=== PATIENT | male | born 1940 | race Caucasian/White ===

== ENCOUNTER 2017-05-04 22:38 | Emergency (ER) | payer MEDICARE, OTHER ==
[~2017-05-04 22:38] MED LIST: ASPI-516 CHEW; ATOR80TA45 PO; DILT60TA PO; ENAL10TA PO; FINA5TAB2 PO; TAMS0.4C4 PO; VESI5TAB2 PO; WARF-60 PO
[2017-05-04 22:43] VITALS: BP 121/64; PULSE 62; RESP 22; TEMP 97.5; O2SAT 98
[2017-05-04] MEDS ORDERED: TOBR.3%O RIGHT EYE (23:20)
--- NOTE | 2017-05-04 23:20 | PD ---
HPI Chief Complaint: Eye Problems/Injury Time Seen by Provider: 23:15 Travel History International Travel<30 days: No Contact w/Intl Traveler<30days: No Traveled to known affect area: No History of Present Illness HPI The patient is a 76-year-old male that got a foreign body, he believes eyelash, and his right eye after he rubbed his eye. He did not see the eyelash in his eye but feels like something is in his eye. He used some Clear Eyes to help wash it out. PFSH Past Medical History Hx Anticoagulant Therapy: Yes Blood Disorders: No Cancer: No Cardiovascular Problems: Yes High Cholesterol: Yes Chest Pain: Yes Cerebrovascular Accident: Yes Coronary Artery Disease: Yes Diminished Hearing: No Endocrine: No Gastrointestinal Disorders: No GERD: Yes Genitourinary: Yes Hypertension: Yes Immune Disorder: No Implanted Vascular Access Dvce: No Musculoskeletal: Yes Neurologic: Yes Psychiatric: No Reproductive: No Respiratory: No Immunizations Current: Yes Myocardial Infarction: Yes Tetanus Vaccination: < 5 Years Influenza Vaccination: Yes Past Surgical History AICD: No Cardiac Surgery: Yes Genitourinary Surgery: Yes (PROSTATE) Insulin Pump: No Joint Replacement: No Pacemaker: No Valve Replacement: Yes (2 METAL VALVES 1996) Other Surgery: Yes Social History Alcohol Use: Yes (OCC BEER) Tobacco Use: No Substance Use: No Allergies-Medications (Allergen,Severity, Reaction): Coded Allergies: No Known Allergies (Verified Adverse Reaction, Unknown, 05/04/17) Reported Meds & Prescriptions Reported Meds & Active Scripts Active Reported Warfarin 6 Mg Tab 6 Mg PO DAILY Tamsulosin (Tamsulosin HCl) 0.4 Mg Cap 0.4 Mg PO HS Vesicare (Solifenacin) 5 Mg Tab 5 Mg PO DAILY Finasteride 5 Mg Tab 5 Mg PO DAILY Do not crush. Enalapril (Enalapril Maleate) 10 Mg Tab 10 Mg PO DAILY Diltiazem (Diltiazem HCl) 60 Mg Tab 60 Mg PO QID Atorvastatin (Atorvastatin Calcium) 80 Mg Tab 80 Mg PO HS Aspirin 81 Mg Chew 81 Mg CHEW DAILY Review of Systems Except as stated in HPI: all other systems reviewed are Neg Physical Exam Narrative GENERAL: Well-nourished, well-developed patient in minimal apparent distress with his right eye discomfort. His vital signs are normal except for respirations of 22, when I see the patient is respirations are 18. SKIN: Focused skin assessment warm/dry. HEAD: Normocephalic. EYES: No scleral icterus. No injection or drainage. NECK: Supple, trachea midline. No JVD or lymphadenopathy. There is no conjunctival injection present. Lids were everted and no foreign body seen. Forcing staining reveals some minimal uptake at 5:00 on the right eye, this is extremely shallow. CARDIOVASCULAR: Regular rate and rhythm without murmurs, gallops, or rubs. RESPIRATORY: Breath sounds equal bilaterally. No accessory muscle use. GASTROINTESTINAL: Abdomen soft, non-tender, nondistended. MUSCULOSKELETAL: No cyanosis, or edema. BACK: Nontender without obvious deformity. No CVA tenderness. Data Data Last Documented VS Vital Signs Date Time Temp Pulse Resp B/P (MAP) Pulse Ox O2 Delivery O2 Flow Rate FiO2 05/04/17 22:43 97.5 62 22 121/64 (83) 98 MDM Medical Decision Making Medical Screen Exam Complete: Yes Emergency Medical Condition: Yes Medical Record Reviewed: Yes Differential Diagnosis Foreign body right eye, chemical conjunctivitis, allergic conjunctivitis, corneal abrasion Narrative Course The patient appears to have a corneal abrasion. No evidence of foreign body was seen. The abrasion is seen at 5:00 on the right eye. Plan: The patient will be given Tobrex ointment and follow-up with an mortgage coordinator if not better in 24 hours. Med/Other Pt SpecificInfo: Prescription(s) given Scripts Tobramycin Opth Oint (Tobrex Opth Oint) 0.3 % Oint 1 APPLIC RIGHT EYE QID for Infection, #1 TUBE 0 Refills Prov: Mariano Bosch MD 05/04/17 Disposition: 01 DISCHARGE HOME Condition: Stable Mariano Bosch MD May 04, 2017 23:20
[2017-05-04] MEDS ORDERED: TOBRAMYCIN SULFATE 0.3% OPTH OINT 3.5 GM TUBE RIGHT EYE ONE (23:30)
[2017-05-04 23:42] VITALS: BP 124/66; PULSE 64; RESP 18; O2SAT 98
== END 2017-05-04 23:43 | disposition home or self-care (01) ==
LOC: PHED 22:38
DX: S05.01XA Injury of conjunctiva and corneal abrasion without foreign body, right eye, initial encounter (principal); X58.XXXA Exposure to other specified factors, initial encounter; Z79.01 Long term (current) use of anticoagulants; I10 Essential (primary) hypertension
CPT/HCPCS: 99283

== ENCOUNTER 2017-05-31 09:27 | Emergency (ER) | payer MEDICARE, OTHER ==
[~2017-05-31] VITALS: Ht 179.1 cm; Wt 81.2 kg
[~2017-05-31 09:27] MED LIST changes: +TOBR.3%O RIGHT EYE
[2017-05-31 09:39] VITALS: BP 146/90; PULSE 114; RESP 16; TEMP 97.5; O2SAT 99
--- NOTE | 2017-05-31 10:01 | PD ---
HPI Chief Complaint: Respiratory Symptoms Time Seen by Provider: 09:58 Travel History International Travel<30 days: No Contact w/Intl Traveler<30days: No Traveled to known affect area: No History of Present Illness HPI Patient presents with complaints of a coughing fit this morning with difficulty catching his breath. Reports recent cold-like symptoms for the last 3-4 days with a sore throat. Started on Keflex. Reports resolution of many of his symptoms. Denies nausea vomiting diarrhea or fever. Denies rash. Nonsmoker. No history of lung disease. He is on Coumadin for history of valve replacement. States his cough is aggravated by laying flat. PFSH Past Medical History Hx Anticoagulant Therapy: Yes (coumadin) Blood Disorders: No Cancer: No Cardiovascular Problems: Yes (htn on meds, [place], valves replaced) High Cholesterol: Yes Chest Pain: Yes Cerebrovascular Accident: Yes (tia) Coronary Artery Disease: Yes Diminished Hearing: No Endocrine: No Gastrointestinal Disorders: No GERD: Yes Genitourinary: Yes Hypertension: Yes Immune Disorder: No Implanted Vascular Access Dvce: No Musculoskeletal: Yes Neurologic: Yes Psychiatric: No Reproductive: No Respiratory: No Immunizations Current: Yes Myocardial Infarction: Yes Past Surgical History AICD: No Cardiac Surgery: Yes Genitourinary Surgery: Yes (PROSTATE) Insulin Pump: No Joint Replacement: No Pacemaker: No Valve Replacement: Yes (2 METAL VALVES 1996) Other Surgery: Yes Social History Alcohol Use: Yes (OCC BEER) Tobacco Use: No Substance Use: No Allergies-Medications (Allergen,Severity, Reaction): Coded Allergies: No Known Allergies (Verified Adverse Reaction, Unknown, 05/31/17) Reported Meds & Prescriptions Reported Meds & Active Scripts Active Reported Warfarin 6 Mg Tab 6 Mg PO DAILY Tamsulosin (Tamsulosin HCl) 0.4 Mg Cap 0.4 Mg PO HS Vesicare (Solifenacin) 5 Mg Tab 5 Mg PO DAILY Finasteride 5 Mg Tab 5 Mg PO DAILY Do not crush. Enalapril (Enalapril Maleate) 10 Mg Tab 10 Mg PO DAILY Diltiazem (Diltiazem HCl) 60 Mg Tab 60 Mg PO QID Atorvastatin (Atorvastatin Calcium) 80 Mg Tab 80 Mg PO HS Aspirin 81 Mg Chew 81 Mg CHEW DAILY Review of Systems General / Constitutional: No: Fever Eyes: No: Visual changes HENT: No: Headaches Cardiovascular: No: Chest Pain or Discomfort Respiratory: Positive: Cough, No: Shortness of Breath Gastrointestinal: No: Abdominal Pain Genitourinary: No: Dysuria Musculoskeletal: No: Pain Skin: No Rash Neurologic: No: Weakness Psychiatric: No: Depression Endocrine: No: Polydipsia Hematologic/Lymphatic: No: Easy Bruising Physical Exam Narrative GENERAL: Well-nourished, well-developed patient. SKIN: Focused skin assessment warm/dry. HEAD: Normocephalic. EYES: No scleral icterus. No injection or drainage. NECK: Supple, trachea midline. No JVD or lymphadenopathy. CARDIOVASCULAR: Regular rate and rhythm without murmurs, gallops, or rubs. RESPIRATORY: Breath sounds equal bilaterally. No accessory muscle use. GASTROINTESTINAL: Abdomen soft, non-tender, nondistended. MUSCULOSKELETAL: No cyanosis, or edema. BACK: Nontender without obvious deformity. No CVA tenderness. Data Data Last Documented VS Vital Signs Date Time Temp Pulse Resp B/P (MAP) Pulse Ox O2 Delivery O2 Flow Rate FiO2 05/31/17 09:58 98 Room Air 05/31/17 09:39 97.5 114 16 146/90 (108) Orders Orders Chest, Single Ap (05/31/17 ) [facility] Medical Decision Making Medical Screen Exam Complete: Yes Emergency Medical Condition: Yes Differential Diagnosis Cough, upper respiratory infection, pneumonia, reflux with aspiration Narrative Course Assessment and plan discussed with patient and at bedside. Last 72 hours Impressions Chest X-Ray 05/31/17 0000 Signed Impressions: Service Date/Time: Wednesday, May 31, 2017 11:01 - CONCLUSION: No acute cardiopulmonary disease. Georgi Hansen MD Diagnosis Primary Impression: Cough Patient Instructions: General Instructions Additional Instructions: Rest fluids and Motrin. Encouraged fluids and Mucinex as an expectorant. Complete Keflex as prescribed. Steroid taper and cough medicine as needed. Follow-up with PCP. Return to emergency room with any onset of new symptoms. Med/Other Pt SpecificInfo: Prescription(s) given Scripts Guaifenesin-Codeine Liq (Cheratussin AC Liq) 100-10 Mg/5 Ml Syrp 5-10 ML PO Q4H Y for COUGH AND COLD SYMPTOMS, #120 ML 0 Refills Do not exceed 6 doses/24 hrs. Prov: René Henriquez MD 05/31/17 Prednisone (21) 5 mg tab Dose Pack (Prednisone (21) 5 mg tab Dose Pack) 5 Mg Dspk 5 MG PO DIRECTED for Inflammation, #1 DSPK 0 Refills Prov: René Henriquez MD 05/31/17 Disposition: 01 DISCHARGE HOME Condition: Good Rneé Henriquez MD May 31, 2017 10:01
--- NOTE | 2017-05-31 11:14 | RADRPT ---
EXAM DATE/TIME: 05/31/2017 11:01 [facility] COMPARISON: No previous studies available for comparison. INDICATIONS : Cough. MEDICAL HISTORY : None. SURGICAL HISTORY : Open heart. ENCOUNTER: Initial ACUITY: 4 - 6 days PAIN SCORE: 0/10 LOCATION: Bilateral chest FINDINGS: Median sternotomy wires are noted status post cardiac surgery. The heart is top normal in size. The p ulmonary vascular pattern is normal. The lungs are clear. CONCLUSION: No acute cardiopulmonary disease. Georgi Hansen MD on May 31, 2017 at 11:11 Board Certified Radiologist. This report was verified electronically.
[2017-05-31] MEDS ORDERED: CHERSYP2 PO (11:25)
[2017-05-31] MEDS ORDERED: PRED5PAK PO (11:25)
[2017-05-31 11:38] VITALS: BP 127/91; PULSE 98; RESP 16; O2SAT 97
== END 2017-05-31 11:48 | disposition home or self-care (01) ==
LOC: PHED 09:27
DX: R05 Cough (principal); E78.00 Pure hypercholesterolemia, unspecified; I10 Essential (primary) hypertension; I25.10 Atherosclerotic heart disease of native coronary artery without angina pectoris; I25.2 Old myocardial infarction; K21.9 Gastro-esophageal reflux disease without esophagitis; Z86.73 Personal history of transient ischemic attack (TIA), and cerebral infarction without residual deficits
CPT/HCPCS: 71045; 99284

== ENCOUNTER 2017-06-22 06:44 | Emergency (ER) | payer MEDICARE, OTHER ==
[~2017-06-22] VITALS: Ht 177.8 cm; Wt 81.5 kg
[~2017-06-22 06:44] MED LIST changes: +CHERSYP2 PO; +PRED5PAK PO; -TOBR.3%O RIGHT EYE
[2017-06-22 06:50] VITALS: BP 134/84; PULSE 116; RESP 20; TEMP 98.4; O2SAT 98
--- NOTE | 2017-06-22 07:24 | PD ---
HPI Chief Complaint: Cold / Flu Symptoms Time Seen by Provider: 07:20 Travel History International Travel<30 days: No Contact w/Intl Traveler<30days: No Traveled to known affect area: No History of Present Illness HPI Patient presents with complaints of sore throat subjective fever and cough for one day. Denies nausea. No new rashes. No tobacco exposure. No history of lung disease. Unknown sick contacts. Similar symptoms one month ago. He did receive his flu shot. PFSH Past Medical History Hx Anticoagulant Therapy: Yes (coumadin) Blood Disorders: No Cancer: No Cardiovascular Problems: Yes (htn on meds, [place], valves replaced) High Cholesterol: Yes Chest Pain: Yes Cerebrovascular Accident: Yes (tia) Coronary Artery Disease: Yes Diminished Hearing: No Endocrine: No Gastrointestinal Disorders: No GERD: Yes Genitourinary: Yes (ENLARGED PROSTATE) Hypertension: Yes Immune Disorder: No Implanted Vascular Access Dvce: No Musculoskeletal: Yes Neurologic: Yes Psychiatric: No Reproductive: No Respiratory: No Immunizations Current: Yes Myocardial Infarction: Yes Tetanus Vaccination: < 5 Years Influenza Vaccination: Yes Past Surgical History AICD: No Cardiac Surgery: Yes Genitourinary Surgery: Yes (PROSTATE) Insulin Pump: No Joint Replacement: No Pacemaker: No Valve Replacement: Yes (2 METAL VALVES 1996) Other Surgery: Yes Social History Alcohol Use: Yes (3 beers daily) Tobacco Use: No Substance Use: No Allergies-Medications (Allergen,Severity, Reaction): Coded Allergies: No Known Allergies (Verified Adverse Reaction, Unknown, 05/31/17) Reported Meds & Prescriptions Reported Meds & Active Scripts Active Cheratussin AC Liq (Guaifenesin-Codeine Liq) 100-10 Mg/5 Ml Syrp 5-10 Ml PO Q4H PRN Do not exceed 6 doses/24 hrs. Prednisone (21) 5 mg tab Dose Pack (Prednisone) 5 Mg Dspk 5 Mg PO DIRECTED Reported Warfarin 6 Mg Tab 6 Mg PO DAILY Tamsulosin (Tamsulosin HCl) 0.4 Mg Cap 0.4 Mg PO HS Vesicare (Solifenacin) 5 Mg Tab 5 Mg PO DAILY Finasteride 5 Mg Tab 5 Mg PO DAILY Do not crush. Enalapril (Enalapril Maleate) 10 Mg Tab 10 Mg PO DAILY Diltiazem (Diltiazem HCl) 60 Mg Tab 60 Mg PO QID Atorvastatin (Atorvastatin Calcium) 80 Mg Tab 80 Mg PO HS Aspirin 81 Mg Chew 81 Mg CHEW DAILY Review of Systems General / Constitutional: Positive: Fever HENT: Positive: Sore Throat Respiratory: Positive: Cough Physical Exam Narrative GENERAL: Well-nourished, well-developed patient. SKIN: Focused skin assessment warm/dry. HEAD: Normocephalic. EYES: No scleral icterus. No injection or drainage. Throat erythematous no adenopathy no exudate NECK: Supple, trachea midline. No JVD or lymphadenopathy. CARDIOVASCULAR: Regular rate and rhythm without murmurs, gallops, or rubs. RESPIRATORY: Breath sounds equal bilaterally. No accessory muscle use. GASTROINTESTINAL: Abdomen soft, non-tender, nondistended. MUSCULOSKELETAL: No cyanosis, or edema. BACK: Nontender without obvious deformity. No CVA tenderness. Data Data Last Documented VS Vital Signs Date Time Temp Pulse Resp B/P (MAP) Pulse Ox O2 Delivery O2 Flow Rate FiO2 06/22/17 08:46 111 20 123/88 (100) 97 06/22/17 07:00 Room Air 06/22/17 06:50 98.4 Orders Orders Influenzae A/B Antigen (06/22/17 07:20) [facility] Medical Decision Making Medical Screen Exam Complete: Yes Emergency Medical Condition: Yes Differential Diagnosis Viral syndrome, influenza, pharyngitis, pneumonia Narrative Course Assessment and plan discussed with patient and at bedside. Influenza swab negative Diagnosis Primary Impression: Pharyngitis Qualified Codes: J02.9 - Acute pharyngitis, unspecified Patient Instructions: General Instructions Additional Instructions: Rest fluids and Motrin, encourage frequent handwashing, consider vitamin C and zinc to boost immune system. Return emergent with any onset of new symptoms. Follow-up with PCP. Med/Other Pt SpecificInfo: Prescription(s) given Scripts Guaifenesin-Codeine Liq (Cheratussin AC Liq) 100-10 Mg/5 Ml Syrp 5-10 ML PO Q4H Y for COUGH AND COLD SYMPTOMS, #120 ML 0 Refills Do not exceed 6 doses/24 hrs. Prov: René Henriquez MD 06/22/17 Azithromycin (Zithromax Z-Chau) 250 Mg Dspk 250 MG PO DIRECTED for Infection, #1 DSPK 0 Refills 500 MG (2 tabs) day 1, then 1 tab days 2-5. Prov: René Henriquez MD 06/22/17 Disposition: 01 DISCHARGE HOME Condition: Good René Henriquez MD Jun 22, 2017 07:24
[2017-06-22 08:46] VITALS: BP 123/88; PULSE 111; RESP 20; O2SAT 97
[2017-06-22] MEDS ORDERED: ZITHTAB PO (08:58)
[2017-06-22] MEDS ORDERED: CHERSYP2 PO (08:58)
== END 2017-06-22 09:09 | disposition home or self-care (01) ==
LOC: PHED 06:44
DX: J02.9 Acute pharyngitis, unspecified (principal); R05 Cough; R50.9 Fever, unspecified; I10 Essential (primary) hypertension; E78.00 Pure hypercholesterolemia, unspecified; I25.10 Atherosclerotic heart disease of native coronary artery without angina pectoris; K21.9 Gastro-esophageal reflux disease without esophagitis; I25.2 Old myocardial infarction; Z86.73 Personal history of transient ischemic attack (TIA), and cerebral infarction without residual deficits
CPT/HCPCS: 87804; 99283

== ENCOUNTER 2017-08-24 11:33 | Observation (INO) | payer MEDICARE, OTHER ==
[2017-08-24] VITALS (11 sets, daily range): BP systolic 106–144; BP diastolic 65–91; PULSE 59–120; RESP 16–20; TEMP 97.8–98.3; O2SAT 96–100
[~2017-08-24 11:33] MED LIST changes: +ZITHTAB PO
--- NOTE | 2017-08-24 11:55 | PD ---
HPI Chief Complaint: Syncope/Near-Syncope Time Seen by Provider: 11:45 Travel History International Travel<30 days: No Contact w/Intl Traveler<30days: No Traveled to known affect area: No History of Present Illness HPI 76-year-old male with history of CHF, aortic repair, mitral valve repair, on Coumadin, here by ambulance for evaluation after a near syncopal episode. The patient reports that he was sitting while at home when he felt as though he may pass out. States that his vision became clouded and he experienced a tightness sensation over the left side of his chest. He stood up which seemed to help his symptoms. Patient denies ever actually having a syncopal episode. Upon arrival to the emergency department he states he feels well and better. He recently returned from a cruise about a week ago, during which he did not take his Lasix. He was diagnosed with bronchitis on Friday by his primary care physician and has been on Keflex. Reports sputum was initially brown tinged, however is now clear. Denies fevers. PFSH Past Medical History Hx Anticoagulant Therapy: Yes (coumadin) Blood Disorders: No Cancer: No Cardiovascular Problems: Yes (htn on meds, [place], valves replaced) High Cholesterol: Yes Chest Pain: Yes Cerebrovascular Accident: Yes (tia) Coronary Artery Disease: Yes Diminished Hearing: No Endocrine: No Gastrointestinal Disorders: No GERD: Yes Genitourinary: Yes (ENLARGED PROSTATE) Hypertension: Yes Immune Disorder: No Implanted Vascular Access Dvce: No Musculoskeletal: Yes Neurologic: Yes Psychiatric: No Reproductive: No Respiratory: No Immunizations Current: Yes Myocardial Infarction: Yes ?: Not Past Surgical History AICD: No Cardiac Surgery: Yes Genitourinary Surgery: Yes (PROSTATE) Insulin Pump: No Joint Replacement: No Pacemaker: No Valve Replacement: Yes (2 METAL VALVES 1996) Other Surgery: Yes Social History Alcohol Use: Yes (3 beers daily) Tobacco Use: No Substance Use: No Allergies-Medications (Allergen,Severity, Reaction): Coded Allergies: No Known Allergies (Verified Adverse Reaction, Unknown, 08/24/17) Reported Meds & Prescriptions Reported Meds & Active Scripts Active Reported Warfarin 3 Mg Tab 3 Mg PO FRIDAY Warfarin 6 Mg Tab 6 Mg PO ARBEN Tamsulosin (Tamsulosin HCl) 0.4 Mg Cap 0.4 Mg PO HS Vesicare (Solifenacin) 5 Mg Tab 5 Mg PO DAILY Finasteride 5 Mg Tab 5 Mg PO DAILY Do not crush. Enalapril (Enalapril Maleate) 10 Mg Tab 10 Mg PO DAILY Diltiazem (Diltiazem HCl) 60 Mg Tab 60 Mg PO QID Atorvastatin (Atorvastatin Calcium) 80 Mg Tab 80 Mg PO HS Aspirin 81 Mg Chew 81 Mg CHEW DAILY Review of Systems Except as stated in HPI: all other systems reviewed are Neg Physical Exam Narrative GENERAL: Pleasant, well-developed, well-nourished, comfortable, no apparent distress. SKIN: Focused skin assessment warm/dry. No rash. No pallor. HEAD: Atraumatic. Normocephalic. EYES: Pupils equal and round. No scleral icterus. No injection or drainage. ENT: Mucous membranes pink and moist. NECK: Trachea midline. No JVD. CARDIOVASCULAR: Tachycardic, rate 120, regular. RESPIRATORY: No accessory muscle use. Clear to auscultation. Breath sounds equal bilaterally. GASTROINTESTINAL: Abdomen soft, non-tender, nondistended. MUSCULOSKELETAL: No obvious deformities. No clubbing. No cyanosis. No edema. NEUROLOGICAL: Awake and alert. No obvious cranial nerve deficits. Motor grossly within normal limits. Normal speech. PSYCHIATRIC: Appropriate mood and affect; insight and judgment normal. Data Data Last Documented VS Vital Signs Date Time Temp Pulse Resp B/P (MAP) Pulse Ox O2 Delivery O2 Flow Rate FiO2 08/24/17 13:20 112 17 143/90 (107) 98 Room Air 08/24/17 11:48 98.1 Orders Orders Complete Blood Count With Diff (08/24/17 11:51) Comprehensive Metabolic Panel (08/24/17 11:51) B-Type Natriuretic Peptide (08/24/17 11:51) Act Partial Throm Time (Ptt) (08/24/17 11:51) Prothrombin Time / Inr (Pt) (08/24/17 11:51) Ckmb (Isoenzyme) Profile (08/24/17 11:51) Troponin I (08/24/17 11:51) Iv Access Insert/Monitor (08/24/17 11:51) Electrocardiogram (08/24/17 11:51) Ecg Monitoring (08/24/17 11:51) Oximetry (08/24/17 11:51) Oxygen Administration (08/24/17 11:51) Sodium Chloride 0.9% Flush (Ns Flush) (08/24/17 12:00) Chest, Single Ap (08/24/17 ) Diltiazem (Cardizem) (08/24/17 13:15) Sodium Chlorid 0.9% 500 Ml Inj (Ns 500 M (08/24/17 13:15) Aspirin Chew (Aspirin Chew) (08/24/17 14:30) Labs Laboratory Tests Test 08/24/17 12:00 White Blood Count 8.3 TH/MM3 Red Blood Count 4.28 MIL/MM3 Hemoglobin 12.8 GM/DL Hematocrit 38.0 % Mean Corpuscular Volume 88.8 FL Mean Corpuscular Hemoglobin 30.0 PG Mean Corpuscular Hemoglobin Concent 33.8 % Red Cell Distribution Width 13.9 % Platelet Count 303 TH/MM3 Mean Platelet Volume 7.8 FL Neutrophils (%) (Auto) 78.4 % Lymphocytes (%) (Auto) 13.2 % Monocytes (%) (Auto) 5.9 % Eosinophils (%) (Auto) 1.1 % Basophils (%) (Auto) 1.4 % Neutrophils # (Auto) 6.5 TH/MM3 Lymphocytes # (Auto) 1.1 TH/MM3 Monocytes # (Auto) 0.5 TH/MM3 Eosinophils # (Auto) 0.1 TH/MM3 Basophils # (Auto) 0.1 TH/MM3 CBC Comment DIFF FINAL Differential Comment Prothrombin Time 35.3 SEC Prothromb Time International Ratio 3.5 RATIO Activated Partial Thromboplast Time 35.8 SEC Blood Urea Nitrogen 31 MG/DL Creatinine 1.31 MG/DL Random Glucose 101 MG/DL Total Protein 7.2 GM/DL Albumin 3.7 GM/DL Calcium Level 9.3 MG/DL Alkaline Phosphatase 83 U/L Aspartate Amino Transf (AST/SGOT) 27 U/L Alanine Aminotransferase (ALT/SGPT) 26 U/L Total Bilirubin 0.4 MG/DL Sodium Level 141 MEQ/L Potassium Level 3.5 MEQ/L Chloride Level 105 MEQ/L Carbon Dioxide Level 28.2 MEQ/L Anion Gap 8 MEQ/L Estimat Glomerular Filtration Rate 53 ML/MIN Total Creatine Kinase 62 U/L Troponin I LESS THAN 0.02 NG/ML B-Type Natriuretic Peptide 68 PG/ML MDM Medical Decision Making Medical Screen Exam Complete: Yes Emergency Medical Condition: Yes Interpretation(s) EKG: Atrial tachycardia with a rate of 113, normal axis, normal intervals, no acute ischemic abnormality. Differential Diagnosis Syncope/near syncope, dysrhythmia, anemia, metabolic abnormality, sepsis, pneumonia, PE Narrative Course Initial vital signs show heart rate 120, blood pressure 144/87, pulse ox 96% on room air, oral temperature 98.1F. CBC: WBC 8.3, hemoglobin 12.8, hematocrit 38, platelets 303. CMP is remarkable for BUN 31, creatinine 1.31, GFR 53, otherwise unremarkable. Cardiac enzymes are negative. BNP is 68. INR is 3.5. Chest x-ray: Status post aortic valve replacement. Mild cardiomegaly. No evidence of acute airspace disease or congestion. Patient was given 60 mg of oral Cardizem with improvement in heart rate to 97. The patient has felt well the entire time in the emergency department. 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 His relish maker is Dr. Saucedo. Case discussed with hospitalist Dr. May who will admit the patient to his service. Diagnosis Primary Impression: Chest pain Qualified Codes: R07.9 - Chest pain, unspecified Additional Impression: Near syncope Admitting Information Admitting Physician Requests: Lui Goldstein MD Aug 24, 2017 11:55
[2017-08-24] MEDS ORDERED: SODIUM CHLORIDE 0.9% FLUSH 10 ML FLUSH IVF PRN (12:00)
[2017-08-24] MEDS ORDERED: WARF-60 PO (12:04)
[2017-08-24] MEDS ORDERED: WARF-58 PO (12:04)
[2017-08-24 12:11] LABS: AUTOMATED NEUTROPHIL # 6.5 TH/MM3 (1.8-7.7); BASOPHIL # 0.1 TH/MM3 (0-0.2); BASOPHIL % 1.4 % (0.0-2.0); EOSINOPHIL # 0.1 TH/MM3 (0-0.4); EOSINOPHIL % 1.1 % (0.0-4.0); HEMOGLOBIN 12.8 GM/DL (13.0-17.0); LYMPH % 13.2 % (9.0-44.0); LYMPHOCYTE # 1.1 TH/MM3 (1.0-4.8); MEAN CELL VOLUME 88.8 FL (80.0-100.0); MEAN CORPUSCULAR HGB CONC 33.8 % (32.0-36.0); MEAN PLATELET VOLUME 7.8 FL (7.0-11.0); MONO % 5.9 % (0.0-8.0); MONOCYTE # 0.5 TH/MM3 (0-0.9); NEUT % 78.4 % (16.0-70.0); PLATELET COUNT 303 TH/MM3 (150-450); RED BLOOD COUNT 4.28 MIL/MM3 (4.50-5.90); RED CELL DISTRIBUTION WIDTH 13.9 % (11.6-17.2); WHITE BLOOD COUNT 8.3 TH/MM3 (4.0-11.0)
[2017-08-24 12:19] LABS: INTERNATIONAL NORMALIZED RATIO 3.5 RATIO; PROTHROMBIN TIME - PATIENT 35.3 SEC (9.8-11.6)
[2017-08-24 12:34] LABS: ALBUMIN 3.7 GM/DL (3.4-5.0); AST (GOT) 27 U/L (15-37); BICARBONATE 28.2 MEQ/L (21.0-32.0); BLOOD UREA NITROGEN 31 MG/DL (7-18); CALCIUM 9.3 MG/DL (8.5-10.1); CHLORIDE 105 MEQ/L (98-107); CREATININE 1.31 MG/DL (0.60-1.30); GLOMERULAR FILTRATION RATE 53 ML/MIN (>89); GLUCOSE,RANDOM 101 MG/DL (74-106); SODIUM (NA) 141 MEQ/L (136-145)
[2017-08-24 12:40] LABS: ALKALINE PHOSPHATASE 83 U/L (45-117); ALT (GPT) 26 U/L (12-78); TOTAL BILIRUBIN ADULT 0.4 MG/DL (0.2-1.0); TOTAL PROTEIN 7.2 GM/DL (6.4-8.2); TROPONIN I LESS THAN 0.02 NG/ML (0.02-0.05)
[2017-08-24] MEDS ORDERED: SODIUM CHLORID 0.9% 500 ML INJ 500 ML IV ONE (13:15)
[2017-08-24] MEDS ORDERED: DILTIAZEM HCL 60 MG TAB PO ONE (13:15)
--- NOTE | 2017-08-24 13:59 | RADRPT ---
EXAM DATE/TIME: 08/24/2017 13:27 [facility] COMPARISON: CHEST SINGLE AP, May 31, 2017, 11:01. INDICATIONS : Syncopal episode, Short of Breath MEDICAL HISTORY : None. SURGICAL HISTORY : CABG. ENCOUNTER: Initial ACUITY: 1 day PAIN SCORE: 0/10 LOCATION: chest FINDINGS: The heart is mildly enlarged. Postsurgical changes following aortic valve replacement are noted. There is no evidence of acute airspace disease. Osseous structures are grossly intact. CONCLUSION: 1. Status post aortic valve replacement. 2. Mild cardiomegaly. 3. No evidence of acute airspace disease or congestion. Osmar Uribe MD on August 24, 2017 at 13:56 Board Certified Radiologist. This report was verified electronically.
[2017-08-24] MEDS ORDERED: ASPIRIN 81 MG CHEW TAB PO ONE (14:30)
[2017-08-24] MEDS ORDERED: SODIUM CHLORIDE 0.9% FLUSH 10 ML FLUSH IV FLUSH PRN (14:45)
--- NOTE | 2017-08-24 15:49 | HHI.HP ---
[facility] Filemon BenavidezJean) MD Jose Admission Diagnosis Chest pain, near syncope Diagnoses: Chief Complaint: Syncope Travel History International Travel<30 Days: No Contact w/Intl Traveler <30 Da: No Traveled to Known Affected Are: No History of Present Illness This is a 76-year-old male with history of hypertension, coronary artery disease status post VT, TIA, CHF, aortic valve repair and mitral valve repair who presented to the hospital with a presyncopal attack. In retrospect, the patient has been having mild shortness of breath and coughing productive with yellowish sputum for about 3-4 weeks now. He was initially started by his primary care physician on azithromycin. Per patient, that got better. He went on a cruise about a week ago, but he did not take his Lasix. Upon returning from the [facility], patient had severe lower extremity edema and worsening cough productive with yellowish and sometimes brown tinged sputum. Patient went to see his primary care physician and he was started on Keflex, today is day 5. His Lasix was also increased from 20 mg to 60 mg daily. Patient has been doing apparently well until today when he had a presyncopal episode. This happened while he was sitting down watching TV, he started becoming dizzy, lightheaded with tunneling of vision but did not completely lose consciousness. Episode lasted for about 1 minute, associated with left-sided chest tightness with no radiation. There is no note of nausea or vomiting but there was mild shortness of breath. After a few minutes, his tooth up and he got better. He then asked his to bring him to the emergency department. No recent immobilization, lower extremity surgery, or sick contacts. He denies any fever , chills, urinary status, abdominal pain or headache. No other focal deficits including dysarthria, focal weakness, difficulty with speech, or numbness. Review of Systems ROS Limitations: Other (All other pertinent systems were reviewed and are negative.) Past Family Social History Past Medical History On anticoagulation Hypertension Myocardial infarction Dyslipidemia TIA Coronary artery disease Prostate enlargement GERD Past Surgical History Prostate surgery Aortic valve repair and mitral valve repair. Reported Medications Warfarin 3 Mg Tab 3 Mg PO FRIDAY Warfarin 6 Mg Tab 6 Mg PO ARBEN Tamsulosin (Tamsulosin HCl) 0.4 Mg Cap 0.4 Mg PO HS Finasteride 5 Mg Tab 5 Mg PO DAILY Do not crush. Enalapril (Enalapril Maleate) 10 Mg Tab 10 Mg PO DAILY Diltiazem (Diltiazem HCl) 60 Mg Tab 60 Mg PO QID Atorvastatin (Atorvastatin Calcium) 80 Mg Tab 80 Mg PO HS Aspirin 81 Mg Chew 81 Mg CHEW DAILY Allergies: Coded Allergies: No Known Allergies (Verified Adverse Reaction, Unknown, 08/24/17) Family History Mother had heart problems and htn Social History Nonsmoker, occasional alcohol use, about 3 beers daily. Physical Exam Vital Signs Vital Signs Date Time Temp Pulse Resp B/P (MAP) Pulse Ox O2 Delivery O2 Flow Rate FiO2 08/24/17 14:57 107 16 123/89 (100) 108 18 139/91 (107) 08/24/17 14:55 96 16 132/88 (103) 96 Room Air 08/24/17 13:20 112 17 143/90 (107) 98 Room Air 08/24/17 11:53 100 Room Air 08/24/17 11:53 100 Room Air 08/24/17 11:48 98.1 120 18 144/87 (106) 96 Physical Exam GENERAL: Not in acute distress, well-nourished. HEAD: Atraumatic. Normocephalic. No temporal or scalp tenderness. EYES: PERRL, full EOMs, no jaundice, nonicteric, pink conjunctivae without injection, moist mucosa ENT: Nose without bleeding, purulent drainage. NECK: Trachea midline, no mass CARDIOVASCULAR: Tachycardic, irregular rhythm, positive murmur and metallic click. RESPIRATORY: No wheezing, bilateral crackles at bases. GASTROINTESTINAL: Abdomen soft, normal bowel sounds, non-tender, nondistended. BUNNY and exam deferred. MUSCULOSKELETAL: Extremities without clubbing, cyanosis, 1+ edema. No calf tenderness. Distal pulses intact, 2+ bilaterally. NEUROLOGICAL: Awake, alert, oriented 3. No obvious cranial nerve deficits. Moves all 4 extremities, muscle strength testing 5 over 5. Motor and sensory grossly within normal limits. .Supple neck, no meningeal signs. Grossly negative cerebellar examination. No focal neurologic deficits. Laboratory Laboratory Tests Test 08/24/17 12:00 White Blood Count 8.3 Red Blood Count 4.28 Hemoglobin 12.8 Hematocrit 38.0 Mean Corpuscular Volume 88.8 Mean Corpuscular Hemoglobin 30.0 Mean Corpuscular Hemoglobin Concent 33.8 Red Cell Distribution Width 13.9 Platelet Count 303 Mean Platelet Volume 7.8 Neutrophils (%) (Auto) 78.4 Lymphocytes (%) (Auto) 13.2 Monocytes (%) (Auto) 5.9 Eosinophils (%) (Auto) 1.1 Basophils (%) (Auto) 1.4 Neutrophils # (Auto) 6.5 Lymphocytes # (Auto) 1.1 Monocytes # (Auto) 0.5 Eosinophils # (Auto) 0.1 Basophils # (Auto) 0.1 CBC Comment DIFF FINAL Differential Comment Prothrombin Time 35.3 Prothromb Time International Ratio 3.5 Activated Partial Thromboplast Time 35.8 Blood Urea Nitrogen 31 Creatinine 1.31 Random Glucose 101 Total Protein 7.2 Albumin 3.7 Calcium Level 9.3 Alkaline Phosphatase 83 Aspartate Amino Transf (AST/SGOT) 27 Alanine Aminotransferase (ALT/SGPT) 26 Total Bilirubin 0.4 Sodium Level 141 Potassium Level 3.5 Chloride Level 105 Carbon Dioxide Level 28.2 Anion Gap 8 Estimat Glomerular Filtration Rate 53 Total Creatine Kinase 62 Troponin I LESS THAN 0.02 B-Type Natriuretic Peptide 68 Result Diagram: 08/24/17 1200 08/24/17 1200 Imaging Last Impressions Chest X-Ray 08/24/17 0000 Signed Impressions: Service Date/Time: Thursday, August 24, 2017 13:27 - CONCLUSION: 1. Status post aortic valve replacement. 2. Mild cardiomegaly. 3. No evidence of acute airspace disease or congestion. Osmar Uribe MD Caprini VTE Risk Assessment Caprini VTE Risk Assessment: Mod/High Risk (score >= 2) Caprini Risk Assessment Model Point Value = 1 Point Value = 2 Point Value = 3 Point Value = 5 Age 41-60 Minor surgery BMI > 25 kg/m2 Swollen legs Varicose veins or History of unexplained or recurrent spontaneous Oral contraceptives or hormone replacement Sepsis (< 1 month) Serious lung disease, including pneumonia (< 1 month) Abnormal pulmonary function Acute myocardial infarction Congestive heart failure (< 1 month) History of inflammatory bowel disease Medical patient at bed rest Age 61-74 Arthroscopic surgery Major open surgery (> 45 min) Laparoscopic surgery (> 45 min) Malignancy Confined to bed (> 72 hours) Immobilizing plaster cast Central venous access Age >= 75 History of VTE Family history of VTE Factor V Leiden Prothrombin [id number] Lupus anticoagulant Anticardiolipin antibodies Elevated serum homocysteine Heparin-induced thrombocytopenia Other congenital or acquired thrombophilia Stroke (< 1 month) Elective arthroplasty Hip, pelvis, or leg fracture Acute spinal cord injury (< 1 month) Prophylaxis Regimen Total Risk Factor Score Risk Level Prophylaxis Regimen 0-1 Low Early ambulation 2 Moderate Order ONE of the following: *Sequential Compression Device (SCD) *Heparin 5000 units SQ BID 3-4 Higher Order ONE of the following medications: *Heparin 5000 units SQ TID *Enoxaparin/Lovenox 40 mg SQ daily (WT < 150 kg, CrCl > 30 mL/min) *Enoxaparin/Lovenox 30 mg SQ daily (WT < 150 kg, CrCl > 10-29 mL/min) *Enoxaparin/Lovenox 30 mg SQ BID (WT < 150 kg, CrCl > 30 mL/min) AND/OR *Sequential Compression Device (SCD) 5 or more Highest Order ONE of the following medications: *Heparin 5000 units SQ TID (Preferred with Epidurals) *Enoxaparin/Lovenox 40 mg SQ daily (WT < 150 kg, CrCl > 30 mL/min) *Enoxaparin/Lovenox 30 mg SQ daily (WT < 150 kg, CrCl > 10-29 mL/min) *Enoxaparin/Lovenox 30 mg SQ BID (WT < 150 kg, CrCl > 30 mL/min) AND *Sequential Compression Device (SCD) Assessment and Plan Assessment and Plan This is a 76-year-old male with history of hypertension, VT, aortic valve repair , TIA presenting with presyncope Presyncope secondary to tachyarrhythmia, likely atrial flutter- EKG the emergency department showed atrial flutter. Need to rule out ACS, check serial troponins serial EKG. Check echocardiogram and carotid ultrasound. Last echocardiogram was 2 years ago, allegedly normal. 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 Consult cardiology. Continue Cardizem. Coronary artery disease-continue statin and aspirin. Serial troponin as above. ? CHF-echocardiogram as above, continue Lasix, intravenously 20 mg twice a day , monitor urine output, monitor BMP. Continue enalapril. Chest x-ray is unremarkable but pulmonary exam revealed bilateral crackles. Status post aortic valve and mitral valve repair-continue Coumadin per home dose , keep INR between 2.5-3.5. Prostate enlargement-continue Flomax and finasteride Creatinine elevation-? Heart failure related, monitor, recheck. DVT prophylaxis: On Coumadin. Discussed with the patient and . Mick May MD Aug 24, 2017 15:49
--- NOTE | 2017-08-24 16:19 | RADRPT ---
EXAM DATE/TIME: 08/24/2017 15:23 [place] COMPARISON: No previous studies available for comparison. INDICATIONS : Syncope. MEDICAL HISTORY : Myocardial infarction. Hypercholesterolemia. Hypertension. Dizziness. Coronary artery disease. Antico agulant therapy, coumadin. Chest pain. Gastroesophageal reflux disease. BPH. SURGICAL HISTORY : Valve replacement. ENCOUNTER: Initial ACUITY: 1 day PAIN SCORE: 0/10 LOCATION: Bilateral neck PEAK SYSTOLIC VELOCITIES (cm/sec): ICA/CCA RATIO: Right: 1.1 Left: 1.3 ICA: Right: 55.9 Left: 84.0 CCA: Right: 50.4 Left: 65.8 ECA: Right: 88.7 Left: 64.7 VERTEBRAL: Right: 52.6 antegrade Left: 59.2 antegrade Elevated flow velocities and ICA/CCA ratios have been found to correlate with increased degrees of vessel stenosis, calculated as percentage of diameter relative to a normal segment of distal ICA/CCA FINDINGS: Minimal heterogeneous plaque is identified in both carotid bifurcations. RIGHT CAROTID: No significant stenosis is visualized. The waveforms are within normal limits. LEFT CAROTID: No significant stenosis is visualized. The waveforms are within normal limits. VERTEBRAL ARTERIES: Antegrade flow is seen in both vertebral arteries. MISCELLANEOUS: None. CONCLUSION: 1. Minimal bilateral carotid plaque. 2. No evidence of hemo-dynamically significant stenosis. 3. Antegrade flow in both vertebral arteries. Osmar Uribe MD on August 24, 2017 at 16:16 Board Certified Radiologist. This report was verified electronically.
[2017-08-24] MEDS: FINASTERIDE 5 MG TAB PO SCH (17:35)
[2017-08-24] MEDS: DILTIAZEM HCL 60 MG TAB PO SCH ×2 (17:35→21:33)
[2017-08-24] MEDS: WARFARIN SOD 6 MG TAB PO SCH (17:35)
[2017-08-24] MEDS: FUROSEMIDE 20 MG/2 ML VIAL IV PUSH SCH (17:36)
[2017-08-24] MEDS: SODIUM CHLORIDE 0.9% FLUSH 10 ML FLUSH IV FLUSH SCH (21:32)
[2017-08-24] MEDS: TAMSULOSIN HCL 0.4 MG CAP PO SCH (21:33)
[2017-08-24] MEDS: ATORVASTATIN 80 MG TAB PO SCH (21:33)
[2017-08-24 22:58] LABS: MAGNESIUM 2.4 MG/DL (1.5-2.5)
[2017-08-24 23:01] LABS: TROPONIN I LESS THAN 0.02 NG/ML (0.02-0.05)
[2017-08-25] VITALS (11 sets, daily range): BP systolic 93–121; BP diastolic 56–82; PULSE 55–85; RESP 18; TEMP 97.5–97.9; O2SAT 95–97
[2017-08-25 04:18] LABS: INTERNATIONAL NORMALIZED RATIO 2.9 RATIO; PROTHROMBIN TIME - PATIENT 29.1 SEC (9.8-11.6)
[2017-08-25 04:24] LABS: BICARBONATE 32.8 MEQ/L (21.0-32.0); CALCIUM 8.9 MG/DL (8.5-10.1); CREATININE 1.12 MG/DL (0.60-1.30)
[2017-08-25 04:26] LABS: CHOLESTEROL/ HDL RATIO 3.4 RATIO; HDL CHOLESTEROL 39.7 MG/DL (40.0-60.0)
--- NOTE | 2017-08-25 08:57 | EKG ---
Date Performed: 08/24/2017 Time Performed: 17:11:51 PTAGE: 76 years EKG: ATRIAL FLUTTER/TACHYCARDIA WITH SLOW VENTRICULAR RESPONSE INFERIOR MYOCARDIAL INFARCTION AB NORMAL ECG PREVIOUS TRACING : 08/24/2017 11.57 Compared to previous tracing, rate slower DOCTOR: Ariel Hyde Interpretating Date/Time 08/25/2017 08:56:51
--- NOTE | 2017-08-25 09:10 | EKG ---
Date Performed: 08/24/2017 Time Performed: 11:57:48 PTAGE: 76 years EKG: ATRIAL FLUTTER/TACHYCARDIA WITH RAPID VENTRICULAR RESPONSE INTRAVENTRICULAR CONDUCTION ROSE Y ABNORMAL ECG PREVIOUS TRACING : 06/14/2015 11.28 Compared to previous tracing, SR no longer present DOCTOR: Ariel Hyde Interpretating Date/Time 08/25/2017 09:08:06
--- NOTE | 2017-08-25 09:12 | MB ---
cc: Andrea Knight MD DATE: 08/25/2017 REASON FOR CONSULTATION: Near syncope. HISTORY OF PRESENT ILLNESS: The patient is a 76-year-old white male with a history of mechanical mitral and aortic valve replacements in 1996, chronic atrial flutter, CVA in 1995 and hyperlipidemia, who was in his usual state of health up until yesterday when while sitting on the couch, he developed severe lightheadedness to the point of near syncope. He states the episode lasted just a few seconds. He stood up and went outside to get some fresh air, which helped his symptomatology. He denies any chest pain, nausea, diaphoresis, headache at the time of the event. About 3 weeks ago, he had troubles with bronchitis and was treated with antibiotics with improvement in his cough and "congestion". However, after coming back from a cruise last week he again developed the same cough and congestion. His furosemide dose recently was also increased from 20 to 60 mg a day due to the development of pedal edema on a cruise. He did not take his furosemide while on the cruise. He denies paroxysmal nocturnal dyspnea, hemoptysis, fevers, diarrhea. PAST MEDICAL HISTORY: 1. Mechanical aortic and mitral valve replacements in 1996. 2. Chronic atrial flutter dating back about a year ago. 3. Cerebrovascular accident in 1995. 4. Hyperlipidemia. 5. Benign prostatic hypertrophy. CARDIAC MEDICATIONS AT HOME: 1. Warfarin 3 mg on Fridays, 6 mg all other days. 2. Enalapril 10 mg daily. 3. Diltiazem 60 mg q.i.d. 4. Atorvastatin 80 mg at bedtime. 5. Aspirin 81 mg daily. ALLERGIES: NO KNOWN DRUG ALLERGIES. FAMILY HISTORY: Noncontributory. SOCIAL HISTORY: The patient is a former smoker. There is no history of alcohol abuse. REVIEW OF SYSTEMS: As in history of present illness, otherwise negative or noncontributory. He also denies visual changes, unilateral weakness or numbness melena, dyspepsia. PHYSICAL EXAMINATION: VITAL SIGNS: His blood pressure 109/65 with a pulse of 74, respirations 18. GENERAL: He is a well-developed, well-nourished white male, in no acute distress. HEENT/NECK: Jugular venous pressure is normal. Carotid pulses are 2+ bilaterally and without bruits. CHEST: Reveals clear lungs jordan. CARDIAC: He has an irregularly irregular rhythm with a grade 1/6 diffuse systolic murmur. The mitral and aortic valve replacement sounds are crisp. ABDOMEN: He has a soft, nontender abdomen. Bowel sounds are present. There is no definite hepatosplenomegaly. EXTREMITIES: Reveals no clubbing or cyanosis. There is trace pretibial edema bilaterally. LABORATORY DATA: EKG shows atrial flutter with variable AV conduction, otherwise normal EKG. Chest x-ray shows no acute disease. WBC 8.3, hemoglobin 12.8, platelets 303. Potassium 4.0, BUN 27, creatinine 1.12. Negative cardiac enzymes. IMPRESSION: Near syncope in a 76-year-old white male with a history of mechanical aortic and mitral valve replacements, chronic atrial flutter, CVA, hyperlipidemia. The etiology of the episode is not entirely clear. The near syncope did not appear to be suggestive of vasovagal mediated event. The patient was mildly tachycardic on admission, although I doubt tachycardia was the reason for his near syncope. He has had no severe bradycardia here on monitoring. His diuretic dosing had been increased recently and there may be a component of dehydration. There is no evidence for acute coronary syndrome. His echocardiogram is pending. By exam his valvular function is normal. RECOMMENDATIONS: 1. Await his 2-D echo. 2. Continue monitoring for at least another 24 hours. 3. In the future, should he have recurrent unexplained syncope or near syncope, consider an implantable loop recorder. MD PARUL Hernandez/MAIN , 08:30 AM , 09:11 AM LINA
[2017-08-25] MEDS: FINASTERIDE 5 MG TAB PO SCH (09:45)
[2017-08-25] MEDS: ASPIRIN 81 MG CHEW TAB CHEW SCH (09:45)
[2017-08-25] MEDS: ENALAPRIL MALEATE 10 MG TAB PO SCH (09:46)
[2017-08-25] MEDS: DILTIAZEM HCL 60 MG TAB PO SCH ×4 (09:46→23:06)
[2017-08-25] MEDS: SODIUM CHLORIDE 0.9% FLUSH 10 ML FLUSH IV FLUSH SCH ×2 (09:49→23:07)
[2017-08-25] MEDS: FUROSEMIDE 20 MG/2 ML VIAL IV PUSH SCH ×2 (09:49→18:00)
[2017-08-25] MEDS: WARFARIN SOD 6 MG TAB PO SCH (18:20)
--- NOTE | 2017-08-25 18:41 | HHI.PR ---
Subjective Remarks Patient says he is feeling all right. Denies any chest pain or shortness of breath. Reports coughing continues. Would like something for the cough. Denies any nausea or vomiting. Objective Vital Signs Date Time Temp Pulse Resp B/P (MAP) Pulse Ox O2 Delivery O2 Flow Rate FiO2 08/25/17 17:10 55 18 99/60 (73) 96 08/25/17 15:42 97.7 72 18 93/56 (68) 96 08/25/17 15:09 70 08/25/17 11:30 97.8 85 18 110/74 (86) 96 08/25/17 08:34 97.5 69 18 121/82 (95) 95 08/25/17 07:00 59 08/25/17 04:45 97.9 74 18 109/65 (80) 96 08/25/17 04:05 78 08/25/17 00:05 60 08/24/17 21:37 69 113/68 (83) 08/24/17 20:11 72 08/24/17 20:02 98.3 59 18 106/65 (79) 96 I/O 08/24/17 08/24/17 08/24/17 08/25/17 08/25/17 08/25/17 07:00 15:00 23:00 07:00 15:00 23:00 Intake Total 500 ml Balance 500 ml Intake IV Total 500 ml Result Diagram: 08/24/17 1200 08/25/17 0349 Objective Remarks GENERAL: Patient sitting up in bed. Appears comfortable. Alert and oriented 4. SKIN: Warm and dry. HEAD: Normocephalic. EYES: No scleral icterus. No injection or drainage. NECK: Supple, trachea midline. No JVD. CARDIOVASCULAR: Regular rate and rhythm without murmurs, gallops, or rubs. RESPIRATORY: Breath sounds equal bilaterally. No accessory muscle use. GASTROINTESTINAL: Abdomen soft, non-tender, nondistended. MUSCULOSKELETAL: No cyanosis, or edema. BACK: Nontender without obvious deformity. No CVA tenderness. A/P Assessment and Plan This is a 76-year-old male with history of hypertension, SD, aortic valve repair , TIA presenting with presyncope //Presyncope secondary to tachyarrhythmia, likely atrial flutter- EKG the emergency department showed atrial flutter. Need to rule out ACS, check serial troponins serial EKG. Check echocardiogram and carotid ultrasound. Last echocardiogram was 2 years ago, allegedly normal. 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 Consult cardiology. Continue Cardizem. = Follow-up echocardiogram. Cardiology following. Appreciate assistance. Continue monitoring as per cardiology. //Cough. //Likely patient with underlying COPD secondary to previous tobacco abuse. =Will add Tessalon Perles and ipratropium nebs. //Coronary artery disease-continue statin and aspirin. Serial troponin as above. //Unlikely CHF //Suspected chronic emphysematous changes secondary to previous smoking. =echocardiogram as above, continue Lasix, intravenously 20 mg twice a day, monitor urine output, monitor BMP. Continue enalapril. Chest x-ray is unremarkable but pulmonary exam revealed bilateral crackles. = Crackles appear to be dry. BNP not elevated. //Status post aortic valve and mitral valve repair-continue Coumadin per home dose, keep INR between 2.5-3.5. = INR 2.9. Continue warfarin. //Prostate enlargement-continue Flomax and finasteride Creatinine elevation-? Heart failure related, monitor, recheck. DVT prophylaxis: On Coumadin. Discharge Planning Discharge home likely tomorrow when cleared by cardiology. Jarrett Edmondson MD Aug 25, 2017 18:41
[2017-08-25] MEDS ORDERED: BENZONATATE 100 MG CAP PO PRN (18:45)
--- NOTE | 2017-08-25 19:50 | ECHRPT ---
Indication: SYNCOPE CONCLUSIONS Normal left ventricular size. Wall thickness is normal. The left ventricular systolic function is moderately reduced with an estimated ejection fraction in the range of 35-40%. The left atrial size is [id number] dilated. The right atrial size is mildly dilated. Moderately dilated proximal ascending aorta. Mechanical mitral valve prosthesis, normal function. Mechanical aortic valve prosthesis, normal function. There is mild tricuspid valve regurgitation. The estimated pulmonary arterial pressure is 43 mmHg. BP: 109 / 64 HR: 74 Rhythm: Atrial fibrillation, Atrial flut ter MEASUREMENTS (Male / Female) Normal Values Technical Quality:Technically difficult study 2D ECHO LV Diastolic Diameter PLAX 5.0 cm 4.2 - 5.9 / 3.9 - 5.3 cm LV Systolic Diameter PLAX 4.0 cm IVS Diastolic Thickness 0.9 cm 0.6 - 1.0 / 0.6 - 0.9 cm LVPW Diastolic Thickness 0.9 cm 0.6 - 1.0 / 0.6 - 0.9 cm LV Relative Wall Thickness 0.4 RV Internal Dim ED PLAX 3.0 cm LVOT Diameter 2.5 cm Aortic Root Diameter 3.2 cm LA Systolic Diameter LX 3.2 cm 3.0 - 4.0 / 2.7 - 3.8 cm DOPPLER AV Peak Velocity 209.2 cm/s AV Peak Gradient 17.5 mmHg AV Mean Gradient 10.8 mmHg AV Velocity Time Integral 37.5 cm LVOT Peak Velocity 61.4 cm/s LVOT Peak Gradient 1.5 mmHg LVOT Velocity Time Integral 11.4 cm AV Area Cont Eq vti 1.5 cm AV Area Cont Eq pk 1.4 cm MV Peak Velocity 189.2 cm/s MV Peak Gradient 14.3 mmHg MV Mean Velocity 130.8 cm/s MV Mean Gradient 8.0 mmHg Mitral E Point Velocity 185.3 cm/s LV E' Lateral Velocity 9.1 cm/s Mitral E to LV E' Lateral Ratio 20.4 LV E' Septal Velocity 4.7 cm/s Mitral E to LV E' Septal Ratio 39.6 TR Peak Velocity 286.0 cm/s TR Peak Gradient 32.7 mmHg Right Atrial Pressure 10.0 mmHg Pulmonary Artery Systolic Pressu 42.7 mmHg Right Ventricular Systolic Press 42.7 mmHg PV Peak Velocity 33.5 cm/s PV Peak Gradient 0.4 mmHg FINDINGS LEFT VENTRICLE Normal left ventricular size. Wall thickness is normal. The left ventricular systolic function is moderately reduced with an estimated ejection fraction in the range of 35-40%. RIGHT VENTRICLE Normal right ventricular size and systolic function. LEFT ATRIUM The left atrial size is [id number] dilated. RIGHT ATRIUM The right atrial size is mildly dilated. ATRIAL SEPTUM No atrial level shunt is demonstrated by color flow Doppler interrogation. AORTA The aortic root and proximal ascending aorta are normal in size on limited imaging. Moderately dilated proximal ascending aorta. MITRAL VALVE Mitral valve mean gradient is 8 mmHg. Mechanical mitral valve prosthesis. AORTIC VALVE Aortic valve area is 1.5 cm. Aortic valve mean gradient is 10.8 mmHg. The aortic valve prosthesis is normal to two-dimensional, color flow and Doppler interrogation. TRICUSPID VALVE Structurally normal tricuspid valve. There is mild tricuspid valve regurgitation. The estimated pulmonary arterial pressure is 42.7 mmHg. PULMONARY VALVE The pulmonary valve is not well visualized. VESSELS The inferior vena cava is normal in size. PERICARDIUM No pericardial effusion. Ariel Hyde MD, FACC (Electronically Signed) Final Date:25 August 2017 19:49
[2017-08-25] MEDS: RESP: IPRATROPIUM 0.5 MG/2.5 ML NEB NEB SCH (20:23)
[2017-08-25] MEDS: ATORVASTATIN 80 MG TAB PO SCH (23:06)
[2017-08-25] MEDS: TAMSULOSIN HCL 0.4 MG CAP PO SCH (23:06)
[2017-08-26 01:01] VITALS: PULSE 59
[2017-08-26] MEDS: RESP: IPRATROPIUM 0.5 MG/2.5 ML NEB NEB SCH ×2 (03:31→10:34)
[2017-08-26 04:07] VITALS: BP 108/60; PULSE 73; RESP 18; TEMP 97.8; O2SAT 94
[2017-08-26 05:55] LABS: INTERNATIONAL NORMALIZED RATIO 2.9 RATIO; PROTHROMBIN TIME - PATIENT 29.2 SEC (9.8-11.6)
--- NOTE | 2017-08-26 08:12 | PD.CARD.PN ---
Subjective Subjective Remarks No recurrent near syncope. No CP, dizziness, palpitations. Objective Medications Item Value Date Time Warfarin Sodium 3 mg 08/29/17 1600 (Coumadin) Fr/PO Aspirin 81 mg 08/25/17 0900 (Aspirin Chew) DAILY/CHEW 08/25/17 0945 Enalapril Maleate 10 mg 08/25/17 0900 (Vasotec) DAILY/PO 08/25/17 0946 Atorvastatin 80 mg 08/24/17 2100 Calcium HS/PO 08/25/17 2306 (Lipitor) Diltiazem HCl 60 mg 08/24/17 1800 (Cardizem) QID/PO 08/25/17 2306 Furosemide 20 mg 08/24/17 1800 (Lasix Inj) BID@/IV PUSH Warfarin Sodium 6 mg 08/24/17 1630 (Coumadin) SuMoTuWeThSa/PO 08/25/17 1820 Current Medications Medications (Trade) Dose Ordered Sig/Matthew Route Start Time Stop Time Status Last Admin (NS Flush) 2 ml UNSCH PRN IV FLUSH 08/24/17 14:45 (NS Flush) 2 ml BID IV FLUSH 08/24/17 21:00 08/25/17 09:49 (Aspirin Chew) 81 mg DAILY CHEW 08/25/17 09:00 08/25/17 09:45 (Lipitor) 80 mg HS PO 08/24/17 21:00 08/25/17 23:06 (Cardizem) 60 mg QID PO 08/24/17 18:00 08/25/17 23:06 (Vasotec) 10 mg DAILY PO 08/25/17 09:00 08/25/17 09:46 (Proscar) 5 mg DAILY PO 08/24/17 16:30 08/25/17 09:45 (Flomax) 0.4 mg HS PO 08/24/17 21:00 08/25/17 23:06 (Coumadin) 3 mg Fr PO 08/29/17 16:00 (Coumadin) 6 mg SuMoTuWeThSa PO 08/24/17 16:30 08/25/17 18:20 (Lasix Inj) 20 mg BID@,18 IV PUSH 08/24/17 18:00 08/25/17 09:49 Pharmacy Profile Note 0 ml @ 0 mls/hr UNSCH OTHER 08/24/17 16:30 (Tessalon) 100 mg TID PRN PO 08/25/17 18:45 (Atrovent Neb) 0.5 mg Q6HR NEB NEB 08/25/17 18:45 08/26/17 03:31 Vital Signs / I&O Vital Signs Date Time Temp Pulse Resp B/P (MAP) Pulse Ox O2 Delivery O2 Flow Rate FiO2 08/26/17 04:07 97.8 73 18 108/60 (76) 94 08/26/17 01:01 59 08/25/17 20:25 97 21 08/25/17 19:39 97.9 78 18 107/57 (74) 97 08/25/17 17:10 55 18 99/60 (73) 96 08/25/17 15:42 97.7 72 18 93/56 (68) 96 08/25/17 15:09 70 08/25/17 11:30 97.8 85 18 110/74 (86) 96 08/25/17 08:34 97.5 69 18 121/82 (95) 95 I/O 08/25/17 08/25/17 08/25/17 08/26/17 08/26/17 08/26/17 07:00 15:00 23:00 07:00 15:00 23:00 # Voids 4 Physical Exam GENERAL: Well developed, well nourished. No acute distress. HEENT: Jugular venous pressure is normal. CHEST: Lungs clear to auscultation bilaterally. Unlabored respiratory effort. CARDIAC: Irregular rate and rhythm without S3, S4. I/ systolic murmur along left sternal border. [place] MVR, AVR sounds. ABDOMEN: Soft, nontender, no hepatosplenomegaly. Bowel sounds present. EXTREMITIES: No clubbing, cyanosis, or edema. Laboratory Laboratory Tests Test 08/26/17 04:59 Prothrombin Time 29.2 SEC Prothromb Time International Ratio 2.9 RATIO Assessment and Plan Problem List: (1) Near syncope ICD Codes: R55 - Syncope and collapse Status: Acute Plan: No further near syncope. HR's down to 30's very early this morning, though patient asymptomatic (was awake). OK to discharge from my standpoint, 4 week f/u with Dr. Chaves. If he has recurrent symptoms, consider implantable loop recorder. To change his qid diltiazem to metoprolol as below. (2) Cardiomyopathy ICD Codes: I42.9 - Cardiomyopathy, unspecified Status: Chronic Plan: EF on echo does appear reduced, most notably on apical views. Appears ~ 40%, with global hypokinesis. Rec change his diltiazem to metoprolol 50 mg bid , repeat echo in 3 months. Continue enalapril. (3) Chronic atrial flutter ICD Codes: I48.92 - Unspecified atrial flutter Status: Chronic Plan: Overall stable. Occasional asymptomatic drops in HR to 30's early this morning, o/w normal HR's. INR therapeutic. To change diltiazem to metoprolol as above. (4) History of aortic valve replacement ICD Codes: Z95.2 - Presence of prosthetic heart valve Status: Chronic Plan: Normal AVR function on echo. INR 2.9. (5) H/O mitral valve replacement ICD Codes: Z95.2 - Presence of prosthetic heart valve Status: Chronic Plan: Normal MVR function on echo. INR 2.9. Problem Qualifiers (1) Cardiomyopathy: Qualified Codes: I42.9 - Cardiomyopathy, unspecified Andrea Knight MD Aug 26, 2017 08:12
[2017-08-26 08:15] VITALS: PULSE 80
[2017-08-26 08:26] VITALS: BP 127/82; PULSE 61; RESP 18; TEMP 98.1; O2SAT 95
[2017-08-26] MEDS: SODIUM CHLORIDE 0.9% FLUSH 10 ML FLUSH IV FLUSH SCH (08:58)
[2017-08-26] MEDS: ASPIRIN 81 MG CHEW TAB CHEW SCH (08:58)
[2017-08-26] MEDS: ENALAPRIL MALEATE 10 MG TAB PO SCH (08:59)
[2017-08-26] MEDS: FUROSEMIDE 20 MG/2 ML VIAL IV PUSH SCH (08:59)
[2017-08-26] MEDS: FINASTERIDE 5 MG TAB PO SCH (08:59)
[2017-08-26] MEDS ORDERED: METOPROLOL TARTRATE 50 MG TAB PO SCH (09:00)
[2017-08-26] MEDS ORDERED: MONT4CHW2 CHEW (10:19)
[2017-08-26] MEDS ORDERED: METO-309 PO (10:19)
[2017-08-26] MEDS ORDERED: CLAR10CA3 PO (10:19)
[2017-08-26] MEDS ORDERED: SYMB160A INH (10:19)
[2017-08-26] MEDS ORDERED: IPRA17I INH (10:19)
[2017-08-26] MEDS ORDERED: FURO20TA PO (10:19)
--- NOTE | 2017-08-26 10:22 | HHI.PR ---
Subjective Remarks Patient says he is feeling well. Would like to go home. Denies any chest pain or shortness of breath. Says the cough is improving. Objective Vital Signs Date Time Temp Pulse Resp B/P (MAP) Pulse Ox O2 Delivery O2 Flow Rate FiO2 08/26/17 08:26 98.1 61 18 127/82 (97) 95 08/26/17 08:15 80 08/26/17 04:07 97.8 73 18 108/60 (76) 94 08/26/17 01:01 59 08/25/17 20:25 97 21 08/25/17 19:39 97.9 78 18 107/57 (74) 97 08/25/17 17:10 55 18 99/60 (73) 96 08/25/17 15:42 97.7 72 18 93/56 (68) 96 08/25/17 15:09 70 08/25/17 11:30 97.8 85 18 110/74 (86) 96 I/O 08/25/17 08/25/17 08/25/17 08/26/17 08/26/17 08/26/17 07:00 15:00 23:00 07:00 15:00 23:00 # Voids 4 1 Result Diagram: 08/24/17 1200 08/25/17 0349 Objective Remarks GENERAL: Patient sitting up in bed. Appears comfortable. Alert and oriented 4. No change on exam. SKIN: Warm and dry. HEAD: Normocephalic. EYES: No scleral icterus. No injection or drainage. NECK: Supple, trachea midline. No JVD. CARDIOVASCULAR: Regular rate and rhythm without murmurs, gallops, or rubs. RESPIRATORY: Breath sounds equal bilaterally. No accessory muscle use. Dry crackles bilateral GASTROINTESTINAL: Abdomen soft, non-tender, nondistended. MUSCULOSKELETAL: No cyanosis, or edema. BACK: Nontender without obvious deformity. No CVA tenderness. A/P Assessment and Plan This is a 76-year-old male with history of hypertension, ME, aortic valve repair , TIA presenting with presyncope //Presyncope secondary to tachyarrhythmia, likely atrial flutter- EKG the emergency department showed atrial flutter. Need to rule out ACS, check serial troponins serial EKG. Check echocardiogram and carotid ultrasound. Last echocardiogram was 2 years ago, allegedly normal. 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 Consult cardiology. Continue Cardizem. = Follow-up echocardiogram. Cardiology following. Appreciate assistance. Continue monitoring as per cardiology. = Echocardiogram with EF 3540% moderately dilated proximal ascending aorta. Normal mechanical mitral valve prosthesis function, aortic valve prosthesis. = Switch to metoprolol as per cardiology. Follow-up with cardiology as outpatient. //Cough. //Likely patient with underlying COPD secondary to previous tobacco abuse. =Will add Tessalon Perles and ipratropium nebs. = Pulmonary referral as outpatient //Coronary artery disease-continue statin and aspirin. Serial troponin as above. //Unlikely CHF //Suspected chronic emphysematous changes secondary to previous smoking. =echocardiogram as above, continue Lasix, intravenously 20 mg twice a day, monitor urine output, monitor BMP. Continue enalapril. Chest x-ray is unremarkable but pulmonary exam revealed bilateral crackles. = Crackles appear to be dry. BNP not elevated. //Status post aortic valve and mitral valve repair-continue Coumadin per home dose, keep INR between 2.5-3.5. = INR 2.9. Continue warfarin. //Prostate enlargement-continue Flomax and finasteride Creatinine elevation-? Heart failure related, monitor, recheck. DVT prophylaxis: On Coumadin. Discharge Planning Discharge home. Follow with cardiology in 3 weeks. Jarrett Edmondson MD Aug 26, 2017 10:22
--- NOTE | 2017-08-26 19:05 | HHI.DS ---
Discharge Summary Admission Date Aug 24, 2017 at 14:33 Discharge Date: Aug 26, 2017 Admitting Diagnosis Chest pain, near syncope (1) Cardiomyopathy ICD Code: I42.9 - Cardiomyopathy, unspecified Status: Chronic (2) Chronic atrial flutter ICD Code: I48.92 - Unspecified atrial flutter Status: Chronic Procedures no invasive procedures. Brief History - From Admission This is a 76-year-old male with history of hypertension, coronary artery disease status post SD, TIA, CHF, aortic valve repair and mitral valve repair who presented to the hospital with a presyncopal attack. In retrospect, the patient has been having mild shortness of breath and coughing productive with yellowish sputum for about 3-4 weeks now. He was initially started by his primary care physician on azithromycin. Per patient, that got better. He went on a cruise about a week ago, but he did not take his Lasix. Upon returning from the [facility], patient had severe lower extremity edema and worsening cough productive with yellowish and sometimes brown tinged sputum. Patient went to see his primary care physician and he was started on Keflex, today is day 5. His Lasix was also increased from 20 mg to 60 mg daily. Patient has been doing apparently well until today when he had a presyncopal episode. This happened while he was sitting down watching TV, he started becoming dizzy, lightheaded with tunneling of vision but did not completely lose consciousness. Episode lasted for about 1 minute, associated with left-sided chest tightness with no radiation. There is no note of nausea or vomiting but there was mild shortness of breath. After a few minutes, his tooth up and he got better. He then asked his to bring him to the emergency department. No recent immobilization, lower extremity surgery, or sick contacts. He denies any fever , chills, urinary status, abdominal pain or headache. No other focal deficits including dysarthria, focal weakness, difficulty with speech, or numbness. CBC/BMP: 08/24/17 1200 08/25/17 0349 Significant Findings Laboratory Tests Test 08/24/17 12:00 08/24/17 16:41 08/24/17 22:18 08/25/17 03:49 Red Blood Count 4.28 MIL/MM3 (4.50-5.90) Hemoglobin 12.8 GM/DL (13.0-17.0) Hematocrit 38.0 % (39.0-51.0) Neutrophils (%) (Auto) 78.4 % (16.0-70.0) Prothrombin Time 35.3 SEC (9.8-11.6) 29.1 SEC (9.8-11.6) Activated Partial Thromboplast Time 35.8 SEC (24.3-30.1) Blood Urea Nitrogen 31 MG/DL (7-18) 27 MG/DL (7-18) Creatinine 1.31 MG/DL (0.60-1.30) Estimat Glomerular Filtration Rate 53 ML/MIN (>89) 64 ML/MIN (>89) Troponin I LESS THAN 0.02 NG/ML LESS THAN 0.02 NG/ML LESS THAN 0.02 NG/ML LESS THAN 0.02 NG/ML Carbon Dioxide Level 32.8 MEQ/L (21.0-32.0) Anion Gap 4 MEQ/L (5-15) HDL Cholesterol 39.7 MG/DL (40.0-60.0) Test 08/26/17 04:59 Prothrombin Time 29.2 SEC (9.8-11.6) Imaging Last Impressions Chest X-Ray 08/24/17 0000 Signed Impressions: Service Date/Time: Thursday, August 24, 2017 13:27 - CONCLUSION: 1. Status post aortic valve replacement. 2. Mild cardiomegaly. 3. No evidence of acute airspace disease or congestion. Osmar Uribe MD Carotid Artery Ultrasound 08/24/17 0000 Signed Impressions: Service Date/Time: Thursday, August 24, 2017 15:23 - CONCLUSION: 1. Minimal bilateral carotid plaque. 2. No evidence of hemo-dynamically significant stenosis. 3. Antegrade flow in both vertebral arteries. Osmar Uribe MD Hospital Course Carotid ultrasound without significant plaque. Echocardiogram with ejection fraction 3540 percent. Cardiology was consulted, has switch patient from diltiazem to metoprolol to improve blood pressure. Discharge home. Follow with cardiology as outpatient. Patient was treated for COPD exacerbation, was started on Singulair, ipratropium , Symbicort inhalers. Follow up with pulmonology as outpatient. For problem-based summary from most recent progress note, please see below. This is a 76-year-old male with history of hypertension, SD, aortic valve repair , TIA presenting with presyncope //Presyncope secondary to tachyarrhythmia, likely atrial flutter- EKG the emergency department showed atrial flutter. Need to rule out ACS, check serial troponins serial EKG. Check echocardiogram and carotid ultrasound. Last echocardiogram was 2 years ago, allegedly normal. 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 Consult cardiology. Continue Cardizem. = Follow-up echocardiogram. Cardiology following. Appreciate assistance. Continue monitoring as per cardiology. = Echocardiogram with EF 3540% moderately dilated proximal ascending aorta. Normal mechanical mitral valve prosthesis function, aortic valve prosthesis. = Switch to metoprolol as per cardiology. Follow-up with cardiology as outpatient. //Cough. //Likely patient with underlying COPD secondary to previous tobacco abuse. =Will add Tessalon Perles and ipratropium nebs. = Pulmonary referral as outpatient //Coronary artery disease-continue statin and aspirin. Serial troponin as above. //Unlikely CHF //Suspected chronic emphysematous changes secondary to previous smoking. =echocardiogram as above, continue Lasix, intravenously 20 mg twice a day, monitor urine output, monitor BMP. Continue enalapril. Chest x-ray is unremarkable but pulmonary exam revealed bilateral crackles. = Crackles appear to be dry. BNP not elevated. //Status post aortic valve and mitral valve repair-continue Coumadin per home dose, keep INR between 2.5-3.5. = INR 2.9. Continue warfarin. //Prostate enlargement-continue Flomax and finasteride Creatinine elevation-? Heart failure related, monitor, recheck. DVT prophylaxis: On Coumadin. Discharge Planning Discharge home. Follow with cardiology in 3 weeks. Pt Condition on Discharge: Good Discharge Disposition: Discharge Home Discharge Time: > 30 minutes Discharge Instructions DIET: Follow Instructions for: Heart Healthy Diet Fluid Restrictions: 2000ml Activities you can perform: Regular-No Restrictions Follow up Referrals: Cardiology - 3 Weeks with Tammie Chaves MD PCP Follow-up - 1 Week with Filemon GarciaJean) Pulmonology - 1 Week New Medications: Budesonide-Formoterol Inh (Symbicort Inh) 160-4.5 Mcg/Act Aero 1 PUFF INH Q12HR, #1 INHALER 0 Refills Furosemide (Furosemide) 20 Mg Tab 20 MG PO DAILY for HEART, #30 TAB 0 Refills Ipratropium HFA 12.9 GM Inh (Atrovent HFA 12.9 GM Inh) 17 Mcg/Actuation Aer 2 PUFF INH Q6HR PRN for SHORTNESS OF BREATH, #1 INHALER 0 Refills Loratadine (Claritin) 10 Mg Cap 10 MG PO DAILY for Allergy Management for 30 Days, #30 CAP 0 Refills Montelukast (Singulair) 4 Mg Chew 4 MG CHEW HS for COPD, #30 TAB 0 Refills Metoprolol Tartrate (Lopressor) 50 Mg Tab 50 MG PO Q12HR for HEART for 30 Days, TAB Continued Medications: Aspirin (Aspirin) 81 Mg Chew 81 MG CHEW DAILY, TAB 0 Refills Atorvastatin (Atorvastatin) 80 Mg Tab 80 MG PO HS for Cholesterol Management, #30 TAB 0 Refills Enalapril (Enalapril) 10 Mg Tab 10 MG PO DAILY, #30 TAB 0 Refills Finasteride (Finasteride) 5 Mg Tab 5 MG PO DAILY for Manage Prostate Problems, #30 TAB 0 Refills Do not crush. Tamsulosin (Tamsulosin) 0.4 Mg Cap 0.4 MG PO HS for Manage Prostate Problems, #30 CAP 0 Refills Warfarin (Warfarin) 6 Mg Tab 6 MG PO [facility] for Blood Clot Prevention, #30 TAB 0 Refills Warfarin (Warfarin) 3 Mg Tab 3 MG PO FRIDAY for Blood Clot Prevention, #30 TAB 0 Refills Discontinued Medications: Diltiazem (Diltiazem) 60 Mg Tab 60 MG PO QID for Angina, #120 TAB 0 Refills Solifenacin (Vesicare) 5 Mg Tab 5 MG PO DAILY for Urinary Symptom Managemen, #30 TAB 0 Refills Jarrett Edmondson MD Aug 26, 2017 19:05
[2017-08-29] MEDS ORDERED: WARFARIN SOD 3 MG TAB PO SCH (16:00)
== END 2017-08-26 11:33 | disposition home or self-care (01) ==
LOC: NEPE 11:33 → NEDA 14:33 → NEPFCDU 16:25
PROVIDERS: ADMIT Internal Medicine; ATTEND Internal Medicine
DX: I42.9 Cardiomyopathy, unspecified (principal); I48.92 Unspecified atrial flutter; J44.1 Chronic obstructive pulmonary disease with (acute) exacerbation; I25.10 Atherosclerotic heart disease of native coronary artery without angina pectoris; I11.0 Hypertensive heart disease with heart failure; N40.0 Benign prostatic hyperplasia without lower urinary tract symptoms; I50.9 Heart failure, unspecified; I25.2 Old myocardial infarction; E78.5 Hyperlipidemia, unspecified; E78.00 Pure hypercholesterolemia, unspecified; K21.9 Gastro-esophageal reflux disease without esophagitis; Z86.73 Personal history of transient ischemic attack (TIA), and cerebral infarction without residual deficits; Z79.01 Long term (current) use of anticoagulants; Z82.49 Family history of ischemic heart disease and other diseases of the circulatory system; Z87.891 Personal history of nicotine dependence; Z95.2 Presence of prosthetic heart valve; Z79.82 Long term (current) use of aspirin
CPT/HCPCS: 71045; 80048; 80053; 80061; 82550; 83735; 83880; 84484; 85025; 85610; 85730; 93005; 93306; 93880; 94640; 94664; 96361; 96374; 96376; 99285; G0378; J1940; J7040; J7644

== ENCOUNTER 2017-10-24 10:33 | Emergency (ER) | payer MEDICARE, OTHER ==
[~2017-10-24] VITALS: Ht 179.1 cm; Wt 79.9 kg
[~2017-10-24 10:33] MED LIST changes: -CHERSYP2 PO; +CLAR10CA3 PO; -DILT60TA PO; +FURO20TA PO; +IPRA17I INH; +METO-309 PO; +MONT4CHW2 CHEW; -PRED5PAK PO; +SYMB160A INH; -VESI5TAB2 PO; +WARF-58 PO; -ZITHTAB PO
[2017-10-24 10:37] VITALS: BP 135/60; PULSE 54; RESP 18; TEMP 97.6; O2SAT 98
[2017-10-24] MEDS ORDERED: CEPH500C PO (10:52)
[2017-10-24 10:53] VITALS: BP 135/60; PULSE 54; RESP 18; TEMP 97.6; O2SAT 98
[2017-10-24] MEDS ORDERED: BACT800T5 PO (10:55)
--- NOTE | 2017-10-24 11:06 | PD ---
HPI Chief Complaint: Skin Problem Time Seen by Provider: 10:43 Travel History International Travel<30 days: No Contact w/Intl Traveler<30days: No Traveled to known affect area: No History of Present Illness HPI 76-year-old male presents emergency department for evaluation of a lesion to his left knee that is been present for 2-3 days. He says that he saw his primary care physician 2 days ago and he was able to squeeze some pus out of the area. Says that he was prescribed Keflex yesterday and started taking this medication yesterday. Says he comes in today because the site has become more painful and is concerned about a worsening infection. Says he was unable to see his primary care physician as they are closed today. Says his pain is located on the anterior inferior aspect of the patella, worse with flexion of the knee and palpation, decreased with extension. He denies fevers or chills. He has no other complaints today. Of note, patient takes Coumadin and is concerned about the medication that I will give him today. PFSH Past Medical History Hx Anticoagulant Therapy: No Blood Disorders: No Cancer: No Cardiovascular Problems: Yes (htn on meds, [place], valves replaced) High Cholesterol: Yes Chest Pain: Yes Cerebrovascular Accident: Yes (tia) Coronary Artery Disease: Yes Diabetes: No Patient Takes Glucophage: No Diminished Hearing: No Endocrine: No Gastrointestinal Disorders: No GERD: Yes Genitourinary: Yes (ENLARGED PROSTATE) Hypertension: Yes Immune Disorder: No Implanted Vascular Access Dvce: No Musculoskeletal: No Neurologic: No Psychiatric: No Reproductive: No Respiratory: No Immunizations Current: Yes Myocardial Infarction: Yes Tetanus Vaccination: < 5 Years Past Surgical History AICD: No Cardiac Surgery: Yes Genitourinary Surgery: Yes (PROSTATE) Insulin Pump: No Joint Replacement: No Pacemaker: No Valve Replacement: Yes (2 METAL VALVES 1996) Other Surgery: Yes Social History Alcohol Use: Yes (3 beers daily) Tobacco Use: No Substance Use: No Allergies-Medications (Allergen,Severity, Reaction): Coded Allergies: No Known Allergies (Verified Adverse Reaction, Unknown, 08/24/17) Reported Meds & Prescriptions Reported Meds & Active Scripts Active Bactrim DS (Sulfamethoxazole-Trimethoprim) 800-160 Mg Tab 1 Tab PO BID Furosemide 20 Mg Tab 20 Mg PO DAILY Lopressor (Metoprolol Tartrate) 50 Mg Tab 50 Mg PO Q12HR 30 Days Reported Cephalexin 500 Mg Cap 500 Mg PO Q12H Warfarin 3 Mg Tab 3 Mg PO FRIDAY Warfarin 6 Mg Tab 6 Mg PO ARBEN Tamsulosin (Tamsulosin HCl) 0.4 Mg Cap 0.4 Mg PO HS Finasteride 5 Mg Tab 5 Mg PO DAILY Do not crush. Enalapril (Enalapril Maleate) 10 Mg Tab 10 Mg PO DAILY Atorvastatin (Atorvastatin Calcium) 80 Mg Tab 80 Mg PO HS Aspirin 81 Mg Chew 81 Mg CHEW DAILY Review of Systems Except as stated in HPI: all other systems reviewed are Neg Physical Exam Narrative GENERAL: Well-nourished, well-developed patient, in NAD SKIN: Focused skin assessment warm/dry. No rashes or lesions. Left anterior knee-inferior anterior to patella 1 cm round area erythema without spread. No fluctuance. No lymph angiopathic spread. HEAD: Normocephalic. Atraumatic. EYES: No scleral icterus. No injection or drainage. THROAT: Airway is patent. NECK: Supple, trachea midline. No JVD or lymphadenopathy. No meningismus. CARDIOVASCULAR: Regular rate and rhythm without murmurs, gallops, or rubs. RESPIRATORY: Breath sounds equal bilaterally. No accessory muscle use. No wheezes, rales, or rhonchi MUSCULOSKELETAL: No cyanosis, or edema. Full range of motion of left lower extremity BACK: Nontender without obvious deformity. No CVA tenderness. Data Data Last Documented VS Vital Signs Date Time Temp Pulse Resp B/P (MAP) Pulse Ox O2 Delivery O2 Flow Rate FiO2 10/24/17 10:53 97.6 54 18 135/60 (85) 98 10/24/17 10:37 Room Air Orders Orders Ed Discharge Order (10/24/17 11:06) MDM Medical Decision Making Medical Screen Exam Complete: Yes Emergency Medical Condition: Yes Differential Diagnosis Left knee abscess, erysipelas, cellulitis Narrative Course 76-year-old male presents emergency department for evaluation of a lesion to his left knee that is been present for 2-3 days. He says that he saw his primary care physician 2 days ago and he was able to squeeze some pus out of the area. Says that he was prescribed Keflex yesterday and started taking this medication yesterday. Says he comes in today because the site has become more painful and is concerned about a worsening infection. Says he was unable to see his primary care physician as they are closed today. Says his pain is located on the anterior inferior aspect of the patella, worse with flexion of the knee and palpation, decreased with extension. He denies fevers or chills. He has no other complaints today. Of note, patient takes Coumadin and is concerned about the medication that I will give him today. Vital signs are stable. Physical exam findings consistent with a small area of erythema. No evidence of spread. Patient has been taking Keflex for 1 day. Patient has seems concerned about a deeper tissue infection as the area has become more painful, especially with flexing the knee. Advised patient should continue his Keflex as prescribed previously. Will add on Bactrim. I do not appreciate any fluctuance in this lesion today so we will not perform an incision and drainage. He is advised to follow-up with his primary care physician within 2-3 days. Return for worsening or persistent symptoms. Diagnosis Primary Impression: Cellulitis Qualified Codes: L03.116 - Cellulitis of left lower limb Referrals: Primary Care Physician Patient Instructions: General Instructions Departure Forms: Tests/Procedures Additional Instructions: You may apply warm compresses a couple a times a day to assist drainage. Continue Keflex as prescribed previously. Start Bactrim in combination with Keflex. Follow-up the primary care physician within 1 week or sooner if worsening symptoms. Scripts Sulfamethoxazole-Trimethoprim (Bactrim DS) 800-160 Mg Tab 1 TAB PO BID for Infection, #14 TAB 0 Refills Prov: Jun Watson MD 10/24/17 Disposition: 01 DISCHARGE HOME Condition: Stable Dianne Kemp Oct 24, 2017 11:06
== END 2017-10-24 11:17 | disposition home or self-care (01) ==
LOC: PHEFT 10:33
DX: L03.116 Cellulitis of left lower limb (principal); I10 Essential (primary) hypertension; E78.00 Pure hypercholesterolemia, unspecified; I25.10 Atherosclerotic heart disease of native coronary artery without angina pectoris; K21.9 Gastro-esophageal reflux disease without esophagitis; N40.0 Benign prostatic hyperplasia without lower urinary tract symptoms; Z86.73 Personal history of transient ischemic attack (TIA), and cerebral infarction without residual deficits; I25.2 Old myocardial infarction; Z79.01 Long term (current) use of anticoagulants
CPT/HCPCS: 99283

== ENCOUNTER 2018-06-08 12:57 | Inpatient (IN) ==
[2018-06-08 14:07] LABS: Baso # (Auto) 0.1 th/mm3 (0.0-0.2); Baso % (Auto) 0.7 % (0.0-2.0); Eos # (Auto) 0.2 th/mm3 (0.0-0.4); Eos % (Auto) 1.2 % (0.0-4.0); Hematocrit 37.5 % (39.0-51.0); Hemoglobin 12.4 gm/dL (13.0-17.0); Lymph # (Auto) 1.4 th/mm3 (1.0-4.8); Lymph % (Auto) 8.4 % (9.0-44.0); Mean Corpuscular HGB Conc 33.1 % (32.0-36.0); Mean Corpuscular Volume 93.4 fL (80.0-100.0); Mean Platelet Volume 8.6 fL (7.0-11.0); Mono # (Auto) 1.2 th/mm3 (0.0-0.9); Mono % (Auto) 7.1 % (0.0-8.0); Neut # (Auto) 13.7 th/mm3 (1.8-7.7); Neut % (Auto) 82.6 % (16.0-70.0); Platelet Count 332 th/mm3 (150-450); Red Blood Count 4.01 mil/mm3 (4.50-5.90); Red Cell Distribution Width 13.1 % (11.6-17.2); White Blood Count 16.6 th/mm3 (4.0-11.0)
--- NOTE | 2018-06-08 14:13 | XR ---
EXAM DATE: 06/08/2018 2:08 PM EST AGE/SEX: 77 years / Male INDICATIONS: Chest congestion with wheezing, phlegm x1 week. CLINICAL DATA: This is the patient's initial encounter. Patient reports that signs and symptoms have been present for 1 week and indicates a pain score of 3/10. MEDICAL/SURGICAL HISTORY: Cardiovascular disease. Myocardial infarction. CABG. COMPARISON: [facility], CHEST 1V SINGLE AP, 06/02/2018. . FINDINGS: Megaly, cardiac valvular prosthesis and median sternotomy wires and clips are noted. There are coarse parenchymal densities seen bilaterally new from previous study suggesting developing bilateral airsp latasha disease and peribronchial thickening. No effusions are identified. The aorta is tortuous. Osseous structures are intact. CONCLUSION: Developing bilateral parenchymal infiltrates. Electronically signed by: Fareed Pinon MD Board Certified Radiologist 06/08/2018 2:12 PM EST
[2018-06-08 14:20] LABS: Alanine Aminotransferase 21 U/L (12-78); Albumin 3.1 g/dL (3.4-5.0); Anion Gap 8 meq/L (5-15); Aspartate Aminotransferase 18 U/L (15-37); Blood Urea Nitrogen 21 mg/dL (7-18); Calcium 9.1 mg/dL (8.5-10.1); Chloride 102 meq/L (98-107); Glomerular Filtration Rate 67 mL/min (>89); Glucose,Random 107 mg/dL (74-106); Potassium 3.8 meq/L (3.5-5.1); Sodium 139 meq/L (136-145)
[2018-06-08 14:23] LABS: Alkaline Phosphatase 100 U/L (45-117); Total Protein 7.4 g/dL (6.4-8.2)
[2018-06-08 14:44] LABS: Activated Partial Thrombo Time 49.3 sec (23.4-31.7); INR 3.9 Ratio; Prothrombin Time 39.5 sec (9.8-11.6)
[2018-06-08] MEDS ORDERED: Piperacil/Tazo 4.5 GM Premix 4.5 GM/100 ML BAG IV.SIG STA (14:46)
[2018-06-08] MEDS ORDERED: Vancomycin Inj 1,000 MG in Sodium Chlor 0.9% Inj 250 ML IV.SIG STA (14:46)
--- NOTE | 2018-06-08 15:24 | ED ---
HPI General Chief complaint: Medical Clearance Stated complaint: Sob Time Seen by Provider: 06/08/18 14:20 Source: patient and family Mode of arrival: ambulatory Limitations: no limitations History of Present Illness HPI Narrative: 77-year-old male who presents to the ED for evaluation of shortness of breath. Patient reports that he was seen here about a week ago for evaluation of similar. Per patient he has had a urinary tract infection at the time. Patient he was given Levaquin for the UTI and the bronchitis. Per patient he went to see his doctor 2 days later as he did not really feel better and he was switched to azithromycin. He states that compliance with his medication and he has 1 more pill today. Per patient overall has been feeling more short of breath and still has burning in urination. Per patient the urinary symptoms are not unusual for him as he does get multiple UTIs secondary to having prostate issues. Per patient he is concerned mainly that of his having swelling on his legs as well as feeling short of breath which is new. Per patient he does have a lot of cough and congestion a lot of phlegm. He does take Lasix but states that he has never been told he has CHF. Denies any fevers chills or sweats. No bowel movement issues. Home Medications Medication Instructions Recorded Confirmed aspirin [Aspir-81] 81 mg PO DAILY 06/02/18 06/08/18 finasteride 5 mg PO DAILY 06/02/18 06/08/18 furosemide 40 mg PO DAILY 06/02/18 06/08/18 metoprolol tartrate 50 mg PO BID 06/02/18 06/08/18 tamsulosin 0.4 mg PO BID 06/02/18 06/08/18 warfarin [Coumadin] 6 mg PO DIRECTED 06/02/18 06/08/18 alprazolam [Xanax] mg PO HS 06/08/18 atorvastatin 80 mg PO QPM 06/08/18 06/08/18 azithromycin [Zithromax Z-Chau] mg PO DAILY 06/08/18 losartan 25 mg PO DAILY 06/08/18 06/08/18 warfarin 3 mg PO DIRECTED 06/08/18 06/08/18 Allergies Allergy/AdvReac Type Severity Reaction Status Date / Time No Known Allergies Allergy Verified 06/08/18 14:19 Review of Systems ROS: all other systems reviewed are negative PMFSH Medical History Medical History Enlarged prostate (Acute) High cholesterol (Acute) Hypertension (Acute) Surgical History Surgical History History of radiofrequency ablation (RFA) procedure for cardiac arrhythmia (Acute ) Mechanical heart valve present (Acute) Social History Social History Substance History: No History of Abuse Second Hand Smoke Exposure: No Smoking Status: Former smoker How Often Do You Have a Drink Containing Alcohol: 2 to 3 times a week Recent Travel in [facility] within the Last 8 Weeks: No Recent Out of Country Travel within the Last 8 Weeks: No Immunization History Tetanus Immunization: Unsure Exam Narrative Exam Narrative: GENERAL: Well-appearing in no distress SKIN: Focused skin assessment warm/dry. HEAD: Atraumatic. Normocephalic. EYES: Pupils equal and round. No scleral icterus. No injection or drainage. ENT: No nasal bleeding or discharge. Mucous membranes pink and moist. Tongue is midline. No uvula deviation. NECK: Trachea midline. No JVD. CARDIOVASCULAR: Regular rate and rhythm. No murmur appreciated. RESPIRATORY: No accessory muscle use. Mild rales heard especially in the lower lung jordan. Breath sounds equal bilaterally. GASTROINTESTINAL: Abdomen soft, non-tender, nondistended. Hepatic and splenic margins not palpable. MUSCULOSKELETAL: No obvious deformities. No clubbing. No cyanosis. No edema. Full range of motion of the upper and lower extremities bilaterally. 2+ pulses bilaterally. NEUROLOGICAL: Awake and alert. No obvious cranial nerve deficits. Motor grossly within normal limits. Normal speech. PSYCHIATRIC: Appropriate mood and affect; insight and judgment normal. Course Initial Documented Vital Signs Temperature 98.1 F 06/08/18 13:00 Pulse Rate 94 H 06/08/18 13:00 Respiratory Rate 28 H 06/08/18 13:00 Blood Pressure 120/72 06/08/18 13:00 Pulse Oximetry 94 L 06/08/18 13:00 Last Documented Vital Signs Temperature 98.1 F 06/08/18 13:00 Pulse Rate 80 06/08/18 14:34 Respiratory Rate 24 06/08/18 14:34 Blood Pressure 140/73 06/08/18 14:34 Pulse Oximetry 98 06/08/18 14:34 Medical Decision Making MDM Narrative Medical decision making narrative: 77-year-old male who presents to the ED for evaluation of shortness of breath and cough. Patient was properly examined and was found to have signs and symptoms concerning for worsening pneumonia. Imaging and labs were done in triage. Labs and imaging did show what appears to be developing pneumonia. At this time patient does have worsening leukocytosis and has already tried antibiotics outpatient. Because of the patient's history recommend admission for further evaluation and treatment. Case discussed with my attending Dr. Spain who agrees with this plan. Patient was told this. Patient will be admitted to the resident team who agreed to admission to their service. Medical Screen Exam Complete: Yes Emergency Medical Condition: Yes Differential Diagnosis Differential Diagnosis: Pneumonia versus failed outpatient treatment versus CHF versus sepsis versus worsening pneumonia Medical Records Medical records reviewed: Yes I reviewed the patient's medical records. Lab Data Lab results reviewed: Yes I reviewed the patient's lab results. Result diagrams: 06/08/18 13:30 06/08/18 13:30 Lab Results 06/08/18 06/08/18 06/08/18 Range/Units 13:30 13:30 13:31 WBC 16.6 H (4.0-11.0) th/mm3 RBC 4.01 L (4.50-5.90) mil/mm3 Hgb 12.4 L (13.0-17.0) gm/dL Hct 37.5 L (39.0-51.0) % MCV 93.4 (80.0-100.0) fL MCH 31.0 (27.0-34.0) pg MCHC 33.1 (32.0-36.0) % RDW 13.1 (11.6-17.2) % Plt Count 332 (150-450) th/mm3 MPV 8.6 (7.0-11.0) fL Neut % (Auto) 82.6 H (16.0-70.0) % Lymph % (Auto) 8.4 L (9.0-44.0) % Hood % (Auto) 7.1 (0.0-8.0) % Eos % (Auto) 1.2 (0.0-4.0) % Baso % (Auto) 0.7 (0.0-2.0) % Neut # (Auto) 13.7 H (1.8-7.7) th/mm3 Lymph # (Auto) 1.4 (1.0-4.8) th/mm3 Hood # (Auto) 1.2 H (0.0-0.9) th/mm3 Eos # (Auto) 0.2 (0.0-0.4) th/mm3 Baso # (Auto) 0.1 (0.0-0.2) th/mm3 WBC Differential . Differential Comment Auto diff final PT 39.5 H (9.8-11.6) sec INR 3.9 Ratio APTT 49.3 H (23.4-31.7) sec Sodium 139 (136-145) meq/L Potassium 3.8 (3.5-5.1) meq/L Chloride 102 (98-107) meq/L Carbon Dioxide 29.0 (21.0-32.0) meq/L Anion Gap 8 (5-15) meq/L BUN 21 H (7-18) mg/dL Creatinine 1.08 (0.60-1.30) mg/dL Estimated GFR 67 L (>89) mL/min Random Glucose 107 H (74-106) mg/dL Calcium 9.1 (8.5-10.1) mg/dL Total Bilirubin 0.8 (0.2-1.0) mg/dL AST 18 (15-37) U/L ALT 21 (12-78) U/L Alkaline Phosphatase 100 (45-117) U/L Troponin I Less than 0.02 L (0.02-0.05) ng/mL Total Protein 7.4 (6.4-8.2) g/dL Albumin 3.1 L (3.4-5.0) g/dL Imaging Data Attestation: I personally reviewed and interpreted this imaging study as follows : Radiologist's impression: Chest X-Ray 06/08/18 13:14 CONCLUSION: Developing bilateral parenchymal infiltrates. ECG Data Attestation: I personally reviewed and interpreted this ECG as follows: Interpretation: EKG shows sinus rhythm with no sign of acute ischemia or arrhythmia read by me and attending. Discharge Plan Discharge Disposition Patient Disposition: ED Admit(ED Internal Use Only) Discharge Details Diagnosis: Pneumonia, Failure of outpatient treatment Physicians Team ED Provider: Paradise Kohli ED Midlevel Provider: Ramiro Knapp Rxs /Orders / Referrals /Forms Prescriptions: No Action furosemide 40 mg Tablet 40 mg PO DAILY RF: 0 aspirin [Aspir-81] 81 mg Tablet,Delayed Release (Dr/Ec) 81 mg PO DAILY RF: 0 warfarin [Coumadin] 6 mg Tablet 6 mg PO DIRECTED RF: 0 tamsulosin 0.4 mg Capsule 0.4 mg PO BID RF: 0 metoprolol tartrate 50 mg Tablet 50 mg PO BID RF: 0 finasteride 5 mg Tablet 5 mg PO DAILY RF: 0 atorvastatin 80 mg Tablet 80 mg PO QPM RF: 0 azithromycin [Zithromax Z-Chau] 250 mg Tablet PO DAILY RF: 0 warfarin 3 mg Tablet 3 mg PO DIRECTED RF: 0 losartan 25 mg Tablet 25 mg PO DAILY RF: 0 alprazolam [Xanax] 0.5 mg Tablet PO HS RF: 0 Status ED Status: With Doctor
--- NOTE | 2018-06-08 15:31 | US ---
EXAM DATE: 06/08/2018 3:26 PM EST AGE/SEX: 77 years / Male INDICATIONS: Bilateral leg swelling. CLINICAL DATA: This is the patient's initial encounter. Patient reports that signs and symptoms have been present for 4 - 6 days and indicates a pain score of 2/10. MEDICAL/SURGICAL HISTORY: Hypercholesterolemia. Hypertension. . Heart valve replacement. COMPARISON: No prior exams available for comparison. TECHNIQUE: Venous ultrasound of both lower extremities was performed from the inguinal ligament to t he proximal calf. Real-time, color Doppler and spectral tracing, compression and augmentation techni ques were used. FINDINGS: Right Leg: Normal compression of the deep venous system from the inguinal region to the proximal marv f. No echogenic clot is seen. Normal response of the venous system to augmentation and respiration. Left Leg: Normal compression of the deep venous system from the inguinal region to the proximal calf . No echogenic clot is seen. Normal response of the venous system to augmentation and respiration. Other: None. CONCLUSION: No evidence of deep venous thrombosis. Electronically signed by: Prasanna Moscoso MD Board Certified Radiologist 06/08/2018 3:30 PM EST
[2018-06-08 15:34] LABS: Activated Partial Thrombo Time 48.8 sec (23.4-31.7); Prothrombin Time 40.1 sec (9.8-11.6)
--- NOTE | 2018-06-08 15:35 | P.HPFP ---
History of Present Illness Primary Care Physician: Jean Garcia MD <Av Barrios - 06/08/18 21:35> History of Present Illness: Mr Sunny presenting for worsening SOB and dizziness. He was seen on 06/02 in [place] and diagnosed with UTI and possible bronchitis, placed on levaquin. Took 2 days of the antibiotics, was not getting any better. PCP on Friday Dr Garcia, and he was switched to azithromycin and codeine cough medicine. Cough is getting worse, increased white sputum, denies any hemoptysis. Reports chills, flushing, urinary frequency, dysuria. Denies any syncope, fevers, nausea, vomiting, hematuria. Single episode of diarrhea right after starting the levaquin. Reports recent leg swelling. Orthopnea. 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 Last echocardiogram about 2 years ago, believes normal HTN BPH Dyslipidemia H/o arrhythmia, maybe afib prior to ablation Meds See med list- alternating 6/3 mg daily with warfarin, did not take medications this morning (would be on a 6mg dose today) Sx Ablation Mechanical valve placement, 1996 Debulking of the prostate [facility] Mother- CHF, HTN Social EtOH 24 cans of beer/ week, no alcohol in about 1 month Tobacco quit 22 years ago, 2ppd for about 30 years Recreational Drugs none <Katia Siegel 06/08/18 16:26> - Diagnosis (1) Pneumonia (2) Sepsis (3) UTI (urinary tract infection) (4) Mechanical heart valve present (5) HTN (hypertension) (6) BPH (benign prostatic hyperplasia) (7) Dyslipidemia (8) Nutrition, metabolism, and development symptoms <Av Barrios - 06/08/18 21:37> (1) Pneumonia (2) Sepsis (3) UTI (urinary tract infection) (4) Mechanical heart valve present (5) HTN (hypertension) (6) BPH (benign prostatic hyperplasia) (7) Dyslipidemia (8) Nutrition, metabolism, and development symptoms <Katia Siegel 06/08/18 16:17> Review of Systems Constitutional: Reports chills, Reports fever(s), Reports weakness <Katia Siegel 06/08/18 16:16> Cardiovascular: Reports leg swelling, Reports lightheadedness, Reports shortness of breath with activity, Reports shortness of breath when lying down, Denies chest pain, Denies irregular heart rhythm <Katia Siegel 06/08/18 16:16> Respiratory: Reports cough, Reports pain with cough <Katia Siegel 16:16> Gastrointestinal: Denies abdominal pain, Denies change in bowel habits, Denies constipation, Denies nausea, Denies vomiting <Katia Siegel 06/08/18 16: 16> Genitourinary: Reports painful urination, Reports urinary frequency, Denies blood in urine <Katia Siegel 06/08/18 16:16> Neurologic: Reports dizziness <Katia Siegel 06/08/18 16:16> PMFSH - History History Provided By: Patient <Katia Siegel 06/08/18 15:35> - Medical History Medical History: Medical History (Last Reviewed 06/08/18 @ 15:20 by MARY ELLEN Stewart) Enlarged prostate High cholesterol Hypertension <Av Barrios Ramila Mirza 06/08/18 21:35> Medical History (Last Reviewed 06/08/18 @ 15:20 by MARY ELLEN Stewart) Enlarged prostate High cholesterol Hypertension <Armando Katia Curry 06/08/18 15:35> - Surgical History Surgical History: Surgical History (Last Reviewed 06/08/18 @ 15:20 by MARY ELLEN Stewart) History of radiofrequency ablation (RFA) procedure for cardiac arrhythmia Mechanical heart valve present <Av Barrios 06/08/18 21:35> Surgical History (Last Reviewed 06/08/18 @ 15:20 by MARY ELLEN Stewart) History of radiofrequency ablation (RFA) procedure for cardiac arrhythmia Mechanical heart valve present <Armando Katia Curry 06/08/18 15:35> - Tobacco History Second Hand Smoke Exposure: No <Katia Siegel 06/08/18 15:35> Tobacco Use In Past 30 Days: No <Katia Siegel 06/08/18 15:35> Smoking Status: Former smoker <Katia Siegel 06/08/18 15:35> - Alcohol History How Often Do You Have a Drink Containing Alcohol: 2 to 3 times a week <Katia Siegel 06/08/18 15:35> - Substance Use History Substance History: No History of Abuse <Katia Siegel 06/08/18 15:35> - Travel History Recent Travel in the [facility] Within the Last 8 Weeks: No <Katia Siegel 06/08 15:35> Recent Travel Out of the Country Within the Last 8 Weeks: No <Katia Siegel 06/08/18 15:35> - Immunization History Tetanus Immunization: Unsure <Katia Siegel 06/08/18 15:35> Medications and Allergies Allergies Allergy/AdvReac Type Severity Reaction Status Date / Time No Known Allergies Allergy Verified 06/08/18 14: <Av Barrios 06/08/18 21:37> Home Medications Medication Instructions Recorded Confirmed Type aspirin [Aspir-81] 81 mg PO DAILY 06/02/18 06/08/18 History finasteride 5 mg PO DAILY 06/02/18 06/08/18 History furosemide 40 mg PO DAILY 06/02/18 06/08/18 History metoprolol tartrate 50 mg PO BID 06/02/18 06/08/18 History tamsulosin 0.4 mg PO BID 06/02/18 06/08/18 History warfarin [Coumadin] 6 mg PO DIRECTED 06/02/18 06/08/18 History alprazolam [Xanax] mg PO HS 06/08/18 History atorvastatin 80 mg PO QPM 06/08/18 06/08/18 History azithromycin [Zithromax Z-Chau] mg PO DAILY 06/08/18 History losartan 25 mg PO DAILY 06/08/18 06/08/18 History warfarin 3 mg PO DIRECTED 06/08/18 06/08/18 History <Av Barrios 06/08/18 21:37> Active Medications: Active Medications Acetaminophen (Tylenol) 650 mg PO Q4H PRN PRN Reason: Temp > 100.4 Last Admin: 06/08/18 18:02 Dose: 650 mg Al Hydroxide/Mg Hydroxide (Milk Of Magnesia Liq) 30 ml PO Q12H PRN PRN Reason: Mild Constipation Atorvastatin Calcium (Lipitor) 80 mg PO QPM HILARY Last Admin: 06/08/18 18:01 Dose: 80 mg Finasteride (Proscar) 5 mg PO DAILY [facility] Furosemide (Lasix) 40 mg PO DAILY [facility] Piperacillin/Tazobactam/Dextrose (Zosyn 4.5 Gm Premix) 4.5 gm in 100 mls @ 200 mls/hr IV.SIG Q6H [facility] Last Admin: 06/08/18 20:39 Dose: 200 mls/hr Vancomycin HCl 1,500 mg/ (Sodium Chloride) 515 mls @ 250 mls/hr IV.SIG Q18H [facility] Losartan Potassium (Cozaar) 25 mg PO DAILY [facility] Metoprolol Tartrate (Lopressor) 50 mg PO BID [facility] Last Admin: 06/08/18 20:39 Dose: 50 mg Miscellaneous Information ([facility] Ordered Lab Info) 0 each OTHER ONCE ONE Stop: 06/10/18 21:46 Ondansetron HCl (Zofran Inj) 4 mg IV.PUSH Q6H PRN PRN Reason: NAUSEA OR VOMITING Pharmacy Profile Note (Vancomycin Consult Pharmacy) 1 each OTHER UNSCH PRN PRN Reason: Pharmacy to dose Senna/Docusate Sodium (Cindy-Colace) 1 tab PO BID [facility] Last Admin: 06/08/18 20:39 Dose: Not Given Sennosides (Senokot) 17.2 mg PO Q12H PRN PRN Reason: Moderate Constipation Sodium Chloride (Ns Flush) 2 ml IV.FLUSH BID [facility] Last Admin: 06/08/18 20:50 Dose: 2 ml Sodium Chloride (Ns Flush) 2 ml IV.FLUSH UNSCH PRN PRN Reason: FLUSH AFTER USING IV ACCESS Tamsulosin HCl (Flomax) 0.4 mg PO BID [facility] Last Admin: 06/08/18 20:39 Dose: 0.4 mg <Av Barrios - 06/08/18 21:37> Active Medications Vancomycin HCl 1,000 mg/ (Sodium Chloride) 250 mls @ 250 mls/hr IV.SIG STAT STA Stop: 06/08/18 15:45 <Katia Siegel - 06/08/18 15:35> Exam Vital signs: Vital Signs 06/08/18 13:00 06/08/18 14:34 06/08/18 16:08 Temperature 98.1 F Pulse Rate 94 H 80 80 Respiratory Rate 28 H 24 26 H Blood Pressure 120/72 140/73 134/73 Pulse Oximetry 94 L 98 97 06/08/18 17:21 06/08/18 18:18 06/08/18 20:00 Temperature 100.5 F H Pulse Rate 81 78 Respiratory Rate 20 18 Blood Pressure 122/61 119/63 Pulse Oximetry 94 L 90 L 91 L Intake & Output 06/08/18 06/08/18 06/09/18 06:59 18:59 06:59 Intake Total 450 / 450 Balance 450 / 450 Weight 77.564 kg Intake: IV 450 / 450 Zosyn 4.5 GM Premix 4.5 gm In 100 / 100 100 ml @ 200 mls/hr IV.SIG STAT STA Rx#:[id number] Vancomycin Inj 1,000 MG In NS 250 / 250 Inj 250 ML @ 250 mls/hr IV.SIG STAT STA Rx#:[id number] Vancomycin Inj 500 MG In NS Inj 100 / 100 100 ML @ 200 mls/hr IV.SIG ONCE ONE Rx#:[id number] Other: Date of Last Bowel Movement 06/06/18 <Av Barrios - 06/08/18 21:37> Vital Signs 06/08/18 13:00 06/08/18 14:34 Temperature 98.1 F Pulse Rate 94 H 80 Respiratory Rate 28 H 24 Blood Pressure 120/72 140/73 Pulse Oximetry 94 L 98 Intake & Output 06/07/18 06/08/18 06/08/18 18:59 06:59 18:59 Weight 77.564 kg <Katia Siegel - 06/08/18 15:35> Narrative: GENERAL: Thin male, lying in bed, breathing through pursed lips, no retractions of the chest. Moderately uncomfortable SKIN: Warm and dry. EYES:No injection or drainage. ENT: Mucous membranes pink and moist. NECK: No JVD. CARDIOVASCULAR: Regular rate and rhythm. Mechanical heart valve click auscultated. RESPIRATORY: No accessory muscle use. Breath sounds diminished bilateral bases. No wheezes or rhonchi. GASTROINTESTINAL: Abdomen soft, non-tender, nondistended. Bowel sounds present. MUSCULOSKELETAL: Extremities without clubbing, cyanosis. Trace edema bilateral ankles, pitting. NEUROLOGICAL: Awake and alert. No obvious cranial nerve deficits. Motor grossly within normal limits. PSYCHIATRIC: Appropriate mood and affect; insight and judgment normal. <Armando Katia Curry E - 06/08/18 16:16> Results - Labs Result diagrams: 06/08/18 13:30 06/08/18 13:30 <Av Barrios - 06/08/18 21:37> Abnormal lab results 06/08/18 06/08/18 06/08/18 Range/Units 13:30 13:30 13:31 WBC 16.6 H (4.0-11.0) th/mm3 RBC 4.01 L (4.50-5.90) mil/mm3 Hgb 12.4 L (13.0-17.0) gm/dL Hct 37.5 L (39.0-51.0) % Neut % (Auto) 82.6 H (16.0-70.0) % Lymph % (Auto) 8.4 L (9.0-44.0) % Neut # (Auto) 13.7 H (1.8-7.7) th/mm3 [place] # (Auto) 1.2 H (0.0-0.9) th/mm3 PT 39.5 H (9.8-11.6) sec APTT 49.3 H (23.4-31.7) sec BUN 21 H (7-18) mg/dL Estimated GFR 67 L (>89) mL/min Random Glucose 107 H (74-106) mg/dL Troponin I Less than 0.02 L (0.02-0.05) ng/mL B-Natriuretic Peptide (0-100) pg/mL Albumin 3.1 L (3.4-5.0) g/dL Urine Clarity (Clear) Ur Leukocyte Esterase (Negative) Urine WBC Clumps (None) Urine Mucus (Occasional) /lpf 06/08/18 06/08/18 06/08/18 Range/Units 14:55 14:55 16:00 WBC (4.0-11.0) th/mm3 RBC (4.50-5.90) mil/mm3 Hgb (13.0-17.0) gm/dL Hct (39.0-51.0) % Neut % (Auto) (16.0-70.0) % Lymph % (Auto) (9.0-44.0) % Neut # (Auto) (1.8-7.7) th/mm3 [place] # (Auto) (0.0-0.9) th/mm3 PT 40.1 H (9.8-11.6) sec APTT 48.8 H (23.4-31.7) sec BUN (7-18) mg/dL Estimated GFR (>89) mL/min Random Glucose (74-106) mg/dL Troponin I (0.02-0.05) ng/mL B-Natriuretic Peptide 125 H (0-100) pg/mL Albumin (3.4-5.0) g/dL Urine Clarity Cloudy H (Clear) Ur Leukocyte Esterase Large H (Negative) Urine WBC Clumps Few H (None) Urine Mucus Few H (Occasional) /lpf Short CBC 06/08/18 Range/Units 13:30 WBC 16.6 H (4.0-11.0) th/mm3 Hgb 12.4 L (13.0-17.0) gm/dL Hct 37.5 L (39.0-51.0) % Plt Count 332 (150-450) th/mm3 BMP 06/08/18 13:30 Sodium 139 Potassium 3.8 Chloride 102 Carbon Dioxide 29.0 BUN 21 H Creatinine 1.08 Calcium 9.1 Cardiac Enzymes 06/08/18 Range/Units 13:30 Troponin I Less than 0.02 L (0.02-0.05) ng/mL Liver Function 06/08/18 Range/Units 13:30 Total Bilirubin 0.8 (0.2-1.0) mg/dL AST 18 (15-37) U/L ALT 21 (12-78) U/L Alkaline Phosphatase 100 (45-117) U/L Albumin 3.1 L (3.4-5.0) g/dL Urine 06/08/18 Range/Units 16:00 Urine Color Yellow (Yellw/Straw) Urine Clarity Cloudy H (Clear) Urine pH 7.0 (5.0-8.5) Ur Specific [place] 1.018 (1.002-1.035) Urine Protein Negative (Neg-Trace) mg/dL Urine Glucose (UA) Negative (Negative) mg/dL <Av Barrios - 06/08/18 21:37> Abnormal lab results 06/08/18 06/08/18 06/08/18 Range/Units 13:30 13:30 13:31 WBC 16.6 H (4.0-11.0) th/mm3 RBC 4.01 L (4.50-5.90) mil/mm3 Hgb 12.4 L (13.0-17.0) gm/dL Hct 37.5 L (39.0-51.0) % Neut % (Auto) 82.6 H (16.0-70.0) % Lymph % (Auto) 8.4 L (9.0-44.0) % Neut # (Auto) 13.7 H (1.8-7.7) th/mm3 [place] # (Auto) 1.2 H (0.0-0.9) th/mm3 PT 39.5 H (9.8-11.6) sec APTT 49.3 H (23.4-31.7) sec BUN 21 H (7-18) mg/dL Estimated GFR 67 L (>89) mL/min Random Glucose 107 H (74-106) mg/dL Troponin I Less than 0.02 L (0.02-0.05) ng/mL Albumin 3.1 L (3.4-5.0) g/dL Short CBC 06/08/18 Range/Units 13:30 WBC 16.6 H (4.0-11.0) th/mm3 Hgb 12.4 L (13.0-17.0) gm/dL Hct 37.5 L (39.0-51.0) % Plt Count 332 (150-450) th/mm3 BMP 06/08/18 13:30 Sodium 139 Potassium 3.8 Chloride 102 Carbon Dioxide 29.0 BUN 21 H Creatinine 1.08 Calcium 9.1 Cardiac Enzymes 06/08/18 Range/Units 13:30 Troponin I Less than 0.02 L (0.02-0.05) ng/mL Liver Function 06/08/18 Range/Units 13:30 Total Bilirubin 0.8 (0.2-1.0) mg/dL AST 18 (15-37) U/L ALT 21 (12-78) U/L Alkaline Phosphatase 100 (45-117) U/L Albumin 3.1 L (3.4-5.0) g/dL <Katia Siegel E - 06/08/18 15:35> - Imaging Impressions Chest X-Ray 06/08/18 13:14 CONCLUSION: Developing bilateral parenchymal infiltrates. Venous Doppler Study 06/08/18 14:30 CONCLUSION: No evidence of deep venous thrombosis. <Av Barrios - 06/08/18 21:37> Impressions Chest X-Ray 06/08/18 13:14 CONCLUSION: Developing bilateral parenchymal infiltrates. <Katia Siegel E - 06/08/18 15:35> Caprini VTE Risk Assessment Caprini VTE Risk Assessment: Moderate/High Risk (score >= 2) <Katia Siegel 06/08/18 16:16> VTE Pharmacological Exception Reason: Coagulopathy,INR elevated <Katia Siegel - 06/08/18 16:16> Caprini Risk Assessment Model: Point Value = 1 Point Value = 2 Point Value = 3 Point Value = 5 Age 41-60 Minor surgery BMI > 25 kg/m2 Swollen legs Varicose veins or History of unexplained or recurrent spontaneous Oral contraceptives or hormone replacement Sepsis (< 1 month) Serious lung disease, including pneumonia (< 1 month) Abnormal pulmonary function Acute myocardial infarction Congestive heart failure (< 1 month) History of inflammatory bowel disease Medical patient at bed rest Age 61-74 Arthroscopic surgery Major open surgery (> 45 min) Laparoscopic surgery (> 45 min) Malignancy Confined to bed (> 72 hours) Immobilizing plaster cast Central venous access Age >= 75 History of VTE Family history of VTE Factor V Leiden Prothrombin [id number] Lupus anticoagulant Anticardiolipin antibodies Elevated serum homocysteine Heparin-induced thrombocytopenia Other congenital or acquired thrombophilia Stroke (< 1 month) Elective arthroplasty Hip, pelvis, or leg fracture Acute spinal cord injury (< 1 month) <Av Barrios - 06/08/18 21:37> Point Value = 1 Point Value = 2 Point Value = 3 Point Value = 5 Age 41-60 Minor surgery BMI > 25 kg/m2 Swollen legs Varicose veins or History of unexplained or recurrent spontaneous Oral contraceptives or hormone replacement Sepsis (< 1 month) Serious lung disease, including pneumonia (< 1 month) Abnormal pulmonary function Acute myocardial infarction Congestive heart failure (< 1 month) History of inflammatory bowel disease Medical patient at bed rest Age 61-74 Arthroscopic surgery Major open surgery (> 45 min) Laparoscopic surgery (> 45 min) Malignancy Confined to bed (> 72 hours) Immobilizing plaster cast Central venous access Age >= 75 History of VTE Family history of VTE Factor V Leiden Prothrombin [id number] Lupus anticoagulant Anticardiolipin antibodies Elevated serum homocysteine Heparin-induced thrombocytopenia Other congenital or acquired thrombophilia Stroke (< 1 month) Elective arthroplasty Hip, pelvis, or leg fracture Acute spinal cord injury (< 1 month) <Armando CurryKatia E - 06/08/18 15:35> Prophylaxis Regimen: Total Risk Factor Score Risk Level Prophylaxis Regimen 0-1 Low Early ambulation 2 Moderate Order ONE of the following: *Sequential Compression Device (SCD) *Heparin 5000 units SQ BID 3-4 Higher Order ONE of the following medications: *Heparin 5000 units SQ TID *Enoxaparin/Lovenox 40 mg SQ daily (WT < 150 kg, CrCl > 30 mL/min) *Enoxaparin/Lovenox 30 mg SQ daily (WT < 150 kg, CrCl > 10-29 mL/min) *Enoxaparin/Lovenox 30 mg SQ BID (WT < 150 kg, CrCl > 30 mL/min) AND/OR *Sequential Compression Device (SCD) 5 or more Highest Order ONE of the following medications: *Heparin 5000 units SQ TID (Preferred with Epidurals) *Enoxaparin/Lovenox 40 mg SQ daily (WT < 150 kg, CrCl > 30 mL/min) *Enoxaparin/Lovenox 30 mg SQ daily (WT < 150 kg, CrCl > 10-29 mL/min) *Enoxaparin/Lovenox 30 mg SQ BID (WT < 150 kg, CrCl > 30 mL/min) AND *Sequential Compression Device (SCD) <Av Barrios - 06/08/18 21:37> Total Risk Factor Score Risk Level Prophylaxis Regimen 0-1 Low Early ambulation 2 Moderate Order ONE of the following: *Sequential Compression Device (SCD) *Heparin 5000 units SQ BID 3-4 Higher Order ONE of the following medications: *Heparin 5000 units SQ TID *Enoxaparin/Lovenox 40 mg SQ daily (WT < 150 kg, CrCl > 30 mL/min) *Enoxaparin/Lovenox 30 mg SQ daily (WT < 150 kg, CrCl > 10-29 mL/min) *Enoxaparin/Lovenox 30 mg SQ BID (WT < 150 kg, CrCl > 30 mL/min) AND/OR *Sequential Compression Device (SCD) 5 or more Highest Order ONE of the following medications: *Heparin 5000 units SQ TID (Preferred with Epidurals) *Enoxaparin/Lovenox 40 mg SQ daily (WT < 150 kg, CrCl > 30 mL/min) *Enoxaparin/Lovenox 30 mg SQ daily (WT < 150 kg, CrCl > 10-29 mL/min) *Enoxaparin/Lovenox 30 mg SQ BID (WT < 150 kg, CrCl > 30 mL/min) AND *Sequential Compression Device (SCD) <Armando CurryKatia Carlos - 06/08/18 15:35> Assessment and Plan - Assessment (1) Pneumonia Code(s): J18.9 - Pneumonia, unspecified organism Status: Acute (2) Sepsis Code(s): A41.9 - Sepsis, unspecified organism Status: Acute (3) UTI (urinary tract infection) Code(s): N39.0 - Urinary tract infection, site not specified Status: Acute (4) Mechanical heart valve present Code(s): Z95.2 - Presence of prosthetic heart valve Status: Acute (5) HTN (hypertension) Code(s): I10 - Essential (primary) hypertension Status: Acute (6) BPH (benign prostatic hyperplasia) Code(s): N40.0 - Benign prostatic hyperplasia without lower urinary tract symptoms Status: Acute (7) Dyslipidemia Code(s): E78.5 - Hyperlipidemia, unspecified Status: Acute (8) Nutrition, metabolism, and development symptoms Code(s): R63.8 - Other symptoms and signs concerning food and fluid intake Status: Acute <Av Barrios - 06/08/18 21:37> (1) Pneumonia Code(s): J18.9 - Pneumonia, unspecified organism Status: Acute Plan: Developing bilateral parenchymal infiltrates noted on CXR Patient failed outpatient treatment with Levaquin and Azithromycin -Possible component of CHF exacerbation to shortness of breath -BNP and calcitonin ordered -Zosyn 4.5 mg every 6 hours -Vancomycin with pharmacy to dose -Continuous pulse oximetry -Sputum cultures ordered -Negative venous Doppler study performed in ED (2) Sepsis Code(s): A41.9 - Sepsis, unspecified organism Status: Acute Plan: -Patient met sepsis criteria based on white blood cell count, tachycardia, increased respiratory rate -Appears stable at this time -Blood cultures drawn will follow -Does not appear to require IV fluids at this time, cautious hydration due to questionable CHF history -See plan for pneumonia above (3) UTI (urinary tract infection) Code(s): N39.0 - Urinary tract infection, site not specified Status: Acute Plan: Patient failed treatment for UTI with Levaquin -Repeat UA with culture if indicated and follow -Antibiotics as above for pneumonia (4) Mechanical heart valve present Code(s): Z95.2 - Presence of prosthetic heart valve Status: Acute Plan: -Patient's medication currently being titrated as an outpatient. Currently on alternating dosing schedule of 6 mg and 3 mg every other day. -INR on admission was 4 -Goal INR of 2.5-3.5 with mechanical heart valve -Hold warfarin today and consider resuming tomorrow based on INR results (5) HTN (hypertension) Code(s): I10 - Essential (primary) hypertension Status: Acute Plan: Continue home furosemide 40 mg, losartan 25 mg, metoprolol 50 mg twice daily (6) BPH (benign prostatic hyperplasia) Code(s): N40.0 - Benign prostatic hyperplasia without lower urinary tract symptoms Status: Acute Plan: Continue home tamsulosin (7) Dyslipidemia Code(s): E78.5 - Hyperlipidemia, unspecified Status: Acute Plan: Continue home atorvastatin (8) Nutrition, metabolism, and development symptoms Code(s): R63.8 - Other symptoms and signs concerning food and fluid intake Status: Acute Plan: Diet: Regular adult diet Fluids: P.o. for now Electrolytes: Replete as necessary, daily BMPs DVT prophylaxis: Hold for now as patient's INR is elevated <Katia Siegel E - 06/08/18 16:17> - Assessment and Plan Discussed Condition With: Dr Osuna <Katia Siegel - 06/08/18 16:16> - Attending Attestation The exam, history, and the medical decision-making described in the above note were completed with the assistance of the resident physician. I reviewed and agree with the findings presented. I attest that I had a [id number] encounter with the patient on the same day, and personally performed and documented my assessment and findings in the medical record. reviewed resident histories and agree. Just over a week of increasing shortness of breath, failed outpatient treatment with levaquin and azithromycin. he has some mild cough but not much. no noted fevers at home but poor appetite, fatigue, weight loss. He has two st laina heart valves, unsure which ones. CXR with bilateral patchy infiltrates On exam he does have some mild respiratory distress, even pursing his lips at times but still maintaining good oxygen saturation. lungs are clear to auscultation. he does have trace pitting edema of ankles with no jvd. he does have a heart murmur but unsure of baseline for this. 1. Community acquired pneumonia: b/l patchy nature is interesting, given he has failed conventional outpatient treatment, including atypicals. no know IC factors. given mechanical valves and risk of IE in this situation will get ECHO and blood cultures will also check HIV in case PCP. Will get sputum cultures including fungal if possible if he is not improving. If deteriorates will need to make ECHO stat and get CT chest with contrast and ABG. empiric vanc and zosyn for now. 2. Supratherapeutic INR hold warfarin and trend to get between 2.5-3.5 Other chronic problems manage with home meds. will pay attention to anti hypertensives, and hold as needed if BP lowering in light of sepsis. Give lasix as clinically indicated <Av Barrios - 06/08/18 21:37> <Katia Siegel - Last Filed: 06/08/18 16:17> (1) Pneumonia Qualifiers: Laterality: bilateral <Av Barrios - Last Filed: 06/08/18 21:37> (1) Pneumonia Qualifiers: Laterality: bilateral <Katia Siegel - Last Filed: 06/08/18 16:17> (1) Pneumonia Qualifiers: Laterality: bilateral <Av Barrios K - Last Filed: 06/08/18 21:37> (1) Pneumonia Qualifiers: Laterality: bilateral
[2018-06-08] MEDS ORDERED: Acetaminophen 325 MG Tablet PO PRN (15:47)
[2018-06-08] MEDS ORDERED: Enoxaparin Inj 40 MG/0.4 ML Syringe SQ SCH (16:00)
[2018-06-08] MEDS ORDERED: Vancomycin Consult Pharmacy OTHER PRN (16:08)
[2018-06-08 17:38] LABS: Bilirubin,Urine Negative (Negative); Clarity,Urine Cloudy (Clear); Color,Urine Yellow (Yellw/Straw); Glucose,Urine (UA) Negative (Negative); Leukocyte Esterase,Urine Large (Negative); Mucus,Urine Few /lpf (Occasional); Nitrite,Urine Negative (Negative); Renal Epithelial Cells,Urine 5 /hpf; Specific Gravity,Urine 1.018 (1.002-1.035); Squamous Epithelial Cell,Urine 2 /hpf (0-5)
[2018-06-08] MEDS: Piperacil/Tazo 4.5 GM Premix 4.5 GM/100 ML BAG IV.SIG SCH (20:39)
[2018-06-08] MEDS: Senna/Docusate Sodium 8.6/50 MG Tablet PO SCH (20:39)
[2018-06-08] MEDS: Metoprolol Tartrate 50 MG Tablet PO SCH (20:39)
[2018-06-09] MEDS: Piperacil/Tazo 4.5 GM Premix 4.5 GM/100 ML BAG IV.SIG SCH ×4 (03:07→21:36)
[2018-06-09 05:48] LABS: Baso # (Auto) 0.1 th/mm3 (0.0-0.2); Baso % (Auto) 0.5 % (0.0-2.0); Eos # (Auto) 0.3 th/mm3 (0.0-0.4); Eos % (Auto) 2.5 % (0.0-4.0); Hematocrit 33.6 % (39.0-51.0); Hemoglobin 11.3 gm/dL (13.0-17.0); Mean Corpuscular HGB Conc 33.7 % (32.0-36.0); Mean Corpuscular Hemoglobin 31.3 pg (27.0-34.0); Mean Corpuscular Volume 92.6 fL (80.0-100.0); Mean Platelet Volume 8.2 fL (7.0-11.0); Mono % (Auto) 7.9 % (0.0-8.0); Neut # (Auto) 10.1 th/mm3 (1.8-7.7); Neut % (Auto) 81.1 % (16.0-70.0); Platelet Count 297 th/mm3 (150-450); Red Blood Count 3.63 mil/mm3 (4.50-5.90); White Blood Count 12.5 th/mm3 (4.0-11.0)
[2018-06-09 05:52] LABS: INR 3.8 Ratio; Prothrombin Time 38.1 sec (9.8-11.6)
[2018-06-09 06:05] LABS: Calcium 8.6 mg/dL (8.5-10.1); Carbon Dioxide 29.5 meq/L (21.0-32.0)
[2018-06-09] MEDS: Finasteride 5 MG Tablet PO SCH (09:31)
[2018-06-09] MEDS: Furosemide 40 MG Tablet PO SCH (09:31)
[2018-06-09] MEDS: Metoprolol Tartrate 50 MG Tablet PO SCH ×2 (09:32→21:35)
[2018-06-09] MEDS: Senna/Docusate Sodium 8.6/50 MG Tablet PO SCH ×2 (09:32→21:36)
[2018-06-09] MEDS: Vancomycin Inj 1,500 MG in Sodium Chlor 0.9% Inj 500 ML IV.SIG SCH (10:49)
--- NOTE | 2018-06-09 11:54 | P.PNFP ---
Subjective Interval history: Still with some shortness of breath but subjectively improved overnight. did have fever. No signs of bleeding. did not use oxygen overnight. still fatigued but no new complaints. Results - Labs Result diagrams: 06/09/18 04:52 06/09/18 04:52 Abnormal lab results 06/08/18 06/08/18 06/08/18 Range/Units 13:30 13:30 13:31 WBC 16.6 H (4.0-11.0) th/mm3 RBC 4.01 L (4.50-5.90) mil/mm3 Hgb 12.4 L (13.0-17.0) gm/dL Hct 37.5 L (39.0-51.0) % Neut % (Auto) 82.6 H (16.0-70.0) % Lymph % (Auto) 8.4 L (9.0-44.0) % Neut # (Auto) 13.7 H (1.8-7.7) th/mm3 [place] # (Auto) 1.2 H (0.0-0.9) th/mm3 PT 39.5 H (9.8-11.6) sec APTT 49.3 H (23.4-31.7) sec BUN 21 H (7-18) mg/dL Estimated GFR 67 L (>89) mL/min Random Glucose 107 H (74-106) mg/dL Troponin I Less than 0.02 L (0.02-0.05) ng/mL B-Natriuretic Peptide (0-100) pg/mL Albumin 3.1 L (3.4-5.0) g/dL Urine Clarity (Clear) Ur Leukocyte Esterase (Negative) Urine WBC Clumps (None) Urine Mucus (Occasional) /lpf 06/08/18 06/08/18 06/08/18 Range/Units 14:55 14:55 16:00 WBC (4.0-11.0) th/mm3 RBC (4.50-5.90) mil/mm3 Hgb (13.0-17.0) gm/dL Hct (39.0-51.0) % Neut % (Auto) (16.0-70.0) % Lymph % (Auto) (9.0-44.0) % Neut # (Auto) (1.8-7.7) th/mm3 [place] # (Auto) (0.0-0.9) th/mm3 PT 40.1 H (9.8-11.6) sec APTT 48.8 H (23.4-31.7) sec BUN (7-18) mg/dL Estimated GFR (>89) mL/min Random Glucose (74-106) mg/dL Troponin I (0.02-0.05) ng/mL B-Natriuretic Peptide 125 H (0-100) pg/mL Albumin (3.4-5.0) g/dL Urine Clarity Cloudy H (Clear) Ur Leukocyte Esterase Large H (Negative) Urine WBC Clumps Few H (None) Urine Mucus Few H (Occasional) /lpf 06/09/18 06/09/18 06/09/18 Range/Units 04:52 04:52 04:52 WBC 12.5 H (4.0-11.0) th/mm3 RBC 3.63 L (4.50-5.90) mil/mm3 Hgb 11.3 L (13.0-17.0) gm/dL Hct 33.6 L (39.0-51.0) % Neut % (Auto) 81.1 H (16.0-70.0) % Lymph % (Auto) 8.0 L (9.0-44.0) % Neut # (Auto) 10.1 H (1.8-7.7) th/mm3 [place] # (Auto) 1.0 H (0.0-0.9) th/mm3 PT 38.1 H (9.8-11.6) sec APTT (23.4-31.7) sec BUN (7-18) mg/dL Estimated GFR 71 L (>89) mL/min Random Glucose (74-106) mg/dL Troponin I (0.02-0.05) ng/mL B-Natriuretic Peptide (0-100) pg/mL Albumin (3.4-5.0) g/dL Urine Clarity (Clear) Ur Leukocyte Esterase (Negative) Urine WBC Clumps (None) Urine Mucus (Occasional) /lpf Short CBC 06/08/18 06/09/18 Range/Units 13:30 04:52 WBC 16.6 H 12.5 H (4.0-11.0) th/mm3 Hgb 12.4 L 11.3 L (13.0-17.0) gm/dL Hct 37.5 L 33.6 L (39.0-51.0) % Plt Count 332 297 (150-450) th/mm3 BMP 06/08/18 06/09/18 13:30 04:52 Sodium 139 141 Potassium 3.8 4.0 Chloride 102 105 Carbon Dioxide 29.0 29.5 BUN 21 H 17 Creatinine 1.08 1.02 Calcium 9.1 8.6 Cardiac Enzymes 06/08/18 Range/Units 13:30 Troponin I Less than 0.02 L (0.02-0.05) ng/mL Liver Function 06/08/18 Range/Units 13:30 Total Bilirubin 0.8 (0.2-1.0) mg/dL AST 18 (15-37) U/L ALT 21 (12-78) U/L Alkaline Phosphatase 100 (45-117) U/L Albumin 3.1 L (3.4-5.0) g/dL Urine 06/08/18 Range/Units 16:00 Urine Color Yellow (Yellw/Straw) Urine Clarity Cloudy H (Clear) Urine pH 7.0 (5.0-8.5) Ur Specific [place] 1.018 (1.002-1.035) Urine Protein Negative (Neg-Trace) mg/dL Urine Glucose (UA) Negative (Negative) mg/dL - Imaging Impressions Chest X-Ray 06/08/18 13:14 CONCLUSION: Developing bilateral parenchymal infiltrates. Venous Doppler Study 06/08/18 14:30 CONCLUSION: No evidence of deep venous thrombosis. Physical Exam Vital signs: Vital Signs 06/08/18 13:00 06/08/18 14:34 06/08/18 16:08 Temperature 98.1 F Pulse Rate 94 H 80 80 Respiratory Rate 28 H 24 26 H Blood Pressure 120/72 140/73 134/73 Pulse Oximetry 94 L 98 97 06/08/18 17:21 06/08/18 18:18 06/08/18 20:00 Temperature 100.5 F H 98.0 F Pulse Rate 81 78 71 Respiratory Rate 20 18 18 Blood Pressure 122/61 119/63 111/59 L Pulse Oximetry 94 L 90 L 96 06/09/18 00:00 06/09/18 04:00 06/09/18 08:00 Temperature 97.6 F 98.1 F 97.9 F Pulse Rate 70 76 71 Respiratory Rate 18 18 20 Blood Pressure 132/69 112/64 139/74 Pulse Oximetry 94 L 94 L 90 L Intake & Output 06/08/18 06/09/18 06/09/18 18:59 06:59 18:59 Intake Total 450 / 450 320 / 320 100 / 100 Balance 450 / 450 320 / 320 100 / 100 Weight 77.564 kg 76.4 kg Intake: IV 450 / 450 200 / 200 100 / 100 Zosyn 4.5 GM Premix 4.5 gm In 100 / 100 200 / 200 100 / 100 100 ml @ 200 mls/hr IV.SIG Q6H [facility]ARY Rx#:[id number] Vancomycin Inj 1,000 MG In NS 250 / 250 Inj 250 ML @ 250 mls/hr IV.SIG STAT STA Rx#:[id number] Vancomycin Inj 500 MG In NS Inj 100 / 100 100 ML @ 200 mls/hr IV.SIG ONCE ONE Rx#:[id number] Oral 120 / 120 Other: # Voids 4 Date of Last Bowel Movement 06/06/18 - Constitutional no acute distress, average body habitus, cooperative - Routine HEENT Exam Head: Present: normocephalic, atraumatic Eye: Present: EOMI, PERRL ENT: Present: mucous membranes moist - Routine Neck Exam Present: supple - Routine Respiratory Exam Present: CTA bilaterally. Absent: accessory muscle use, respiratory distress, stridor, wheezes, crackles Comments: yesterday he was breathing with pursed lips and using some abdominal muscles. today he appears very slightly tachypneic but much more relaxed overall. no longer with accessory muslce use and mouth breathing - Routine Cardiovascular Exam Present: RRR, S1, S2 Comments: + valve clicks and soft murmur - Routine Abdominal Exam Present: soft, normoactive bowel sounds. Absent: tenderness, distended - Routine Extremities Exam Absent: cyanosis, clubbing, edema - Routine Skin Exam Present: intact, cyanosis, erythema Comments: some rosacea - Routine Neurological Exam Present: alert, oriented X3, CN II-XII intact - Routine Psychiatric Exam Present: normal affect Assessment and Plan - Assessment (1) Pneumonia Code(s): J18.9 - Pneumonia, unspecified organism Status: Acute Plan: Improving on Vanc/Zosyn, failed outpatient treatment Will de-escalate after ECHO and blood cultures, would like to rule out endocarditis and septic emboli CT with contrast if worsens (2) Sepsis Code(s): A41.9 - Sepsis, unspecified organism Status: Acute Plan: 2/2 pneumonia, resolving. continue broad spectrum abx and follow cultures (3) UTI (urinary tract infection) Code(s): N39.0 - Urinary tract infection, site not specified Status: Acute Plan: questionable, had outpatient abx treatment for this. 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 - Presence of prosthetic heart valve Status: Acute Plan: INR almost in range, hold warfarin until below 3.5 (5) HTN (hypertension) Code(s): I10 - Essential (primary) hypertension Status: Acute Plan: Continue home furosemide 40 mg, losartan 25 mg, metoprolol 50 mg twice daily (6) BPH (benign prostatic hyperplasia) Code(s): N40.0 - Benign prostatic hyperplasia without lower urinary tract symptoms Status: Acute Plan: Continue home tamsulosin (7) Dyslipidemia Code(s): E78.5 - Hyperlipidemia, unspecified Status: Acute Plan: Continue home atorvastatin (8) Nutrition, metabolism, and development symptoms Code(s): R63.8 - Other symptoms and signs concerning food and fluid intake Status: Acute Plan: Diet: Regular adult diet Fluids: P.o. for now Electrolytes: Replete as necessary, daily BMPs DVT prophylaxis: Hold for now as patient's INR is elevated - Assessment and Plan await blood cultures, echo, monitor respiratory status. will be here at least 48 hrs (1) Pneumonia Qualifiers: Laterality: bilateral
--- NOTE | 2018-06-09 12:22 | ECHRPT ---
Indication: shortness of breath. CONCLUSIONS Normal left ventricular size. Wall thickness is normal. The left ventricular systolic function is ehauqlmw-nj-[id number] reduced with an estimated ejection fra ction in the range of 35-40%. Mean gradient 5mmhg. Normally functioning mechanical mitral valve prosthesis. Mechanical valve appears in place. mean gradient of 19 mmhg.The estimated pulmonary arterial pressure is 53 mmHg. BP: / HR: Rhythm: MEASUREMENTS (Male / Female) Normal Values Technical Quality:Very technically difficult study 2D ECHO LV Diastolic Diameter PLAX 4.9 cm 4.2 - 5.9 / 3.9 - 5.3 cm LV Systolic Diameter PLAX 3.6 cm IVS Diastolic Thickness 1.1 cm 0.6 - 1.0 / 0.6 - 0.9 cm LVPW Diastolic Thickness 1.0 cm 0.6 - 1.0 / 0.6 - 0.9 cm LV Relative Wall Thickness 0.4 RV Internal Dim ED PLAX 2.8 cm LVOT Diameter 1.7 cm M-MODE Aortic Root Diameter MM 2.6 cm LA Systolic Diameter MM 3.4 cm LA Ao Ratio MM 1.3 AV Cusp Separation MM 0.7 cm DOPPLER AV Peak Velocity 299.0 cm/s AV Peak Gradient 35.8 mmHg AV Mean Gradient 18.5 mmHg AV Velocity Time Integral 58.7 cm LVOT Peak Velocity 217.0 cm/s LVOT Peak Gradient 18.8 mmHg LVOT Velocity Time Integral 40.4 cm AV Area Cont Eq vti 1.6 cm AV Area Cont Eq pk 1.6 cm MV Peak Velocity 202.0 cm/s MV Peak Gradient 16.3 mmHg MV Mean Velocity 95.0 cm/s MV Mean Gradient 5.0 mmHg MV Area PHT 2.9 cm Mitral E Point Velocity 155.0 cm/s Mitral A Point Velocity 113.0 cm/s Mitral E to A Ratio 1.4 TR Peak Velocity 326.0 cm/s TR Peak Gradient 42.5 mmHg Right Atrial Pressure 10.0 mmHg Pulmonary Artery Systolic Pressu 52.5 mmHg Right Ventricular Systolic Press 52.5 mmHg PV Peak Velocity 124.0 cm/s PV Peak Gradient 6.2 mmHg FINDINGS LEFT VENTRICLE Normal left ventricular size. Wall thickness is normal. The left ventricular systolic function is lnhmxmuy-er-dhrcauk reduced with an estimated ejection fra ction in the range of 35-40%. RIGHT VENTRICLE Normal right ventricular size and systolic function. LEFT ATRIUM The left atrial size is normal. RIGHT ATRIUM The right atrial size is normal. ATRIAL SEPTUM Normal atrial septal thickness without atrial level shunting by limited color doppler interrogation. AORTA The aortic root and proximal ascending aorta are normal in size on limited imaging. MITRAL VALVE Mean gradient 5mmhg. Normally functioning mechanical mitral valve prosthesis. AORTIC VALVE Mechanical valve appears in place. mean gradient of 19 mmhg. TRICUSPID VALVE The estimated pulmonary arterial pressure is 53 mmHg. PULMONARY VALVE No pulmonary valve regurgitation or stenosis. VESSELS The inferior vena cava is normal in size. PERICARDIUM No pericardial effusion. Hasmukh Davis MD, FACC (Electronically Signed) Final Date:09 June 2018 12:21
--- NOTE | 2018-06-09 14:14 | P.DIET ---
Nutritional Evaluation Type of nutrition evaluation: initial Nutrition screening: Weight Loss > 10 lbs Objective - Diagnosis Acute pneumonia, failed outpatient treatment CHF - Objective Body Mass Index: 23.5 Walker body weight: 75 kg (166lbs) % IBW: 101 Body Weight Used for Calculations: Actual (76.4kg) Energy Needs - Lower Range (kCal/kg): 25 Energy Needs - Upper Range (kCal/kg): 30 Lower Limit kCal/kg (kCals): 1,900 Upper Limit kCal/kg (kCals): 2,280 Lower Limit Protein Factor (Grams per Kg): 1.0 Upper Limit Protein Factor (Grams per Kg): 1.2 Lower Protein Needs (Protein): 76 Upper Protein Needs (Protein): 91 Dietitian Reviewed in Medical Record: Current diet, Curent medications, Intake & Output, Labs, Medical history Diet Order: Regular Oral Diet Intake Amount: Excellent 90%+ Objective Comments: PMH;enlarged prostate, high cholesterol, HTN Labs; Nutritionally unremarkable Medications; lasix Assessment Assessment: Weight loss screen; Pt presented to ED with worsening SOB and dizziness and is currently at nutritional risk r/t recent 9 lb weight loss in the last week. Per MD note, pt reports fevers, decreased appetite, fatigue and weight loss while previously at home. Pt is currently ordered for regular diet with good PO intake at 100%. At this time I will recommend Ensure supplement BID to support PO intake in efforts to minimize further weight loss. Each can of Ensure will provide 250kcal and 9g protein. Labs and medications reviewed. Will continue to monitor PO intake and supplement acceptance. Recommendations: 1. Ensure nutritional supplement BID in efforts to support PO intake and minimize further weight loss 2. Continue to encourage PO intake Dietitian to Monitor: Supplement acceptance, PO Intake, Medical course
--- NOTE | 2018-06-10 01:28 | ECG ---
Date Performed: 06/08/2018 Time Performed: 13:25:09 PTAGE: 77 years EKG: Sinus rhythm WITH FIRST DEGREE AV BLOCK WITH FREQUENT VENTRICULAR PREMATURE COMPLEXES MARKED LEFT AXIS DEVIATION ABNORMAL ECG PREVIOUS TRACING : 08/24/2017 17.11 Compared to previous tracing, previously Aflutter DOCTOR: Jas Navas Interpretating Date/Time 06/10/2018 01:26:38
[2018-06-10] MEDS: Piperacil/Tazo 4.5 GM Premix 4.5 GM/100 ML BAG IV.SIG SCH ×2 (03:38→08:57)
[2018-06-10] MEDS: Vancomycin Inj 1,500 MG in Sodium Chlor 0.9% Inj 500 ML IV.SIG SCH (04:16)
[2018-06-10 06:32] LABS: INR 2.5 Ratio; Prothrombin Time 25.1 sec (9.8-11.6)
[2018-06-10 06:43] LABS: Calcium 8.6 mg/dL (8.5-10.1); Carbon Dioxide 27.7 meq/L (21.0-32.0); Potassium 3.7 meq/L (3.5-5.1)
[2018-06-10 06:53] LABS: Baso # (Auto) 0.1 th/mm3 (0.0-0.2); Baso % (Auto) 0.6 % (0.0-2.0); Eos # (Auto) 0.4 th/mm3 (0.0-0.4); Eos % (Auto) 2.5 % (0.0-4.0); Hematocrit 33.5 % (39.0-51.0); Hemoglobin 11.2 gm/dL (13.0-17.0); Lymph # (Auto) 1.2 th/mm3 (1.0-4.8); Lymph % (Auto) 8.5 % (9.0-44.0); Mean Corpuscular HGB Conc 33.6 % (32.0-36.0); Mean Corpuscular Hemoglobin 31.1 pg (27.0-34.0); Mean Corpuscular Volume 92.6 fL (80.0-100.0); Mean Platelet Volume 8.2 fL (7.0-11.0); Mono # (Auto) 1.1 th/mm3 (0.0-0.9); Mono % (Auto) 7.9 % (0.0-8.0); Neut # (Auto) 11.4 th/mm3 (1.8-7.7); Neut % (Auto) 80.5 % (16.0-70.0); Platelet Count 328 th/mm3 (150-450); Red Blood Count 3.62 mil/mm3 (4.50-5.90); Red Cell Distribution Width 13.2 % (11.6-17.2); White Blood Count 14.2 th/mm3 (4.0-11.0)
[2018-06-10] MEDS: Finasteride 5 MG Tablet PO SCH (08:58)
[2018-06-10] MEDS: Metoprolol Tartrate 50 MG Tablet PO SCH (08:58)
[2018-06-10] MEDS: Furosemide 40 MG Tablet PO SCH (08:58)
[2018-06-10] MEDS: Senna/Docusate Sodium 8.6/50 MG Tablet PO SCH (09:00)
--- NOTE | 2018-06-10 09:40 | P.PNFP ---
Subjective Interval history: Mr Correa was seen on rounds this morning. He reports that he did have to go on oxygen for about 4 hours yesterday evening. He states that he was up in the bathroom, straining to urinate and began to cough severely with some minimal streaking of blood in the sputum produced. At that time he was also tachycardic and felt like his heart was racing. He notes that his oxygen saturation dropped to 81 while coughing. He was placed on oxygen via nasal cannula, he does not know how much. He stayed on oxygen for about 4 hours but reports that after the acute episode of coughing he did not feel as if he needed it any longer. Oxygen saturations noted in chart only as low as 91%. Patient reports this morning his breathing is back to where he was yesterday afternoon. He feels ready to go home. He denies any chest pain, nausea, vomiting, diarrhea. He reports continued dysuria with straining during urination. <Katia Siegel - 06/10/18 09:39> Results - Labs Result diagrams: 06/10/18 06:01 06/10/18 06:01 <Av Barrios - 06/10/18 10:25> Abnormal lab results 06/10/18 06/10/18 06/10/18 Range/Units 06:01 06:01 06:01 WBC 14.2 H (4.0-11.0) th/mm3 RBC 3.62 L (4.50-5.90) mil/mm3 Hgb 11.2 L (13.0-17.0) gm/dL Hct 33.5 L (39.0-51.0) % Neut % (Auto) 80.5 H (16.0-70.0) % Lymph % (Auto) 8.5 L (9.0-44.0) % Neut # (Auto) 11.4 H (1.8-7.7) th/mm3 [place] # (Auto) 1.1 H (0.0-0.9) th/mm3 PT 25.1 H D (9.8-11.6) sec Estimated GFR 59 L (>89) mL/min Random Glucose 112 H (74-106) mg/dL Short CBC 06/10/18 Range/Units 06:01 WBC 14.2 H (4.0-11.0) th/mm3 Hgb 11.2 L (13.0-17.0) gm/dL Hct 33.5 L (39.0-51.0) % Plt Count 328 (150-450) th/mm3 [facility] 06/10/18 06:01 Sodium 139 Potassium 3.7 Chloride 104 Carbon Dioxide 27.7 BUN 14 Creatinine 1.20 Calcium 8.6 <Av Barrios - 06/10/18 10:25> Abnormal lab results 06/10/18 06/10/18 06/10/18 Range/Units 06:01 06:01 06:01 WBC 14.2 H (4.0-11.0) th/mm3 RBC 3.62 L (4.50-5.90) mil/mm3 Hgb 11.2 L (13.0-17.0) gm/dL Hct 33.5 L (39.0-51.0) % Neut % (Auto) 80.5 H (16.0-70.0) % Lymph % (Auto) 8.5 L (9.0-44.0) % Neut # (Auto) 11.4 H (1.8-7.7) th/mm3 [place] # (Auto) 1.1 H (0.0-0.9) th/mm3 PT 25.1 H D (9.8-11.6) sec Estimated GFR 59 L (>89) mL/min Random Glucose 112 H (74-106) mg/dL Short CBC 06/10/18 Range/Units 06:01 WBC 14.2 H (4.0-11.0) th/mm3 Hgb 11.2 L (13.0-17.0) gm/dL Hct 33.5 L (39.0-51.0) % Plt Count 328 (150-450) th/mm3 [facility] 06/10/18 06:01 Sodium 139 Potassium 3.7 Chloride 104 Carbon Dioxide 27.7 BUN 14 Creatinine 1.20 Calcium 8.6 <Katia Siegel - 06/10/18 09:39> Physical Exam Vital signs: Vital Signs 06/09/18 12:00 06/09/18 16:00 06/09/18 20:00 Temperature 97.6 F 97.6 F 98 F Pulse Rate 58 L 78 67 Respiratory Rate 20 20 18 Blood Pressure 110/63 122/67 116/60 Pulse Oximetry 92 L 91 L 95 06/09/18 20:39 06/10/18 00:00 06/10/18 02:23 Temperature 98 F Pulse Rate 51 L 76 Respiratory Rate 18 19 Blood Pressure 106/59 L 131/67 Pulse Oximetry 94 L 92 L 91 L 06/10/18 02:26 06/10/18 04:00 06/10/18 08:00 Temperature 97.8 F 97.8 F Pulse Rate 71 86 Respiratory Rate 18 18 20 Blood Pressure 114/60 129/66 Pulse Oximetry 97 95 90 L Intake & Output 06/09/18 06/10/18 06/10/18 18:59 06:59 18:59 Intake Total 1315 / 1315 955 / 955 100 / 100 Output Total 100 / 100 Balance 1315 / 1315 855 / 855 100 / 100 Weight 76.8 kg Intake: IV 715 / 715 715 / 715 100 / 100 Zosyn 4.5 GM Premix 4.5 gm In 200 / 200 200 / 200 100 / 100 100 ml @ 200 mls/hr IV.SIG Q6H [facility] Rx#:[id number] Vancomycin Inj 1,500 MG In NS 515 / 515 515 / 515 Inj 500 ML @ 250 mls/hr IV.SIG Q18H [facility]ILARY Rx#:[id number] Oral 600 / 600 240 / 240 Output: Urine 100 / 100 Other: # Voids 4 Date of Last Bowel Movement 06/06/18 06/09/18 # Bowel Movements 2 0 <Av Barrios K - 06/10/18 10:25> Vital Signs 06/09/18 12:00 06/09/18 16:00 06/09/18 20:00 Temperature 97.6 F 97.6 F 98 F Pulse Rate 58 L 78 67 Respiratory Rate 20 20 18 Blood Pressure 110/63 122/67 116/60 Pulse Oximetry 92 L 91 L 95 06/09/18 20:39 06/10/18 00:00 06/10/18 02:23 Temperature 98 F Pulse Rate 51 L 76 Respiratory Rate 18 19 Blood Pressure 106/59 L 131/67 Pulse Oximetry 94 L 92 L 91 L 06/10/18 02:26 06/10/18 04:00 Temperature 97.8 F Pulse Rate 71 Respiratory Rate 18 18 Blood Pressure 114/60 Pulse Oximetry 97 95 Intake & Output 06/09/18 06/10/18 06/10/18 18:59 06:59 18:59 Intake Total 1315 / 1315 955 / 955 Output Total 100 / 100 Balance 1315 / 1315 855 / 855 Weight 76.8 kg Intake: IV 715 / 715 715 / 715 Zosyn 4.5 GM Premix 4.5 gm In 200 / 200 200 / 200 100 ml @ 200 mls/hr IV.SIG Q6H [facility]ARY Rx#:[id number] Vancomycin Inj 1,500 MG In NS 515 / 515 515 / 515 Inj 500 ML @ 250 mls/hr IV.SIG Q18H HILARY Rx#:[id number] Oral 600 / 600 240 / 240 Output: Urine 100 / 100 Other: # Voids 4 Date of Last Bowel Movement 06/06/18 06/09/18 # Bowel Movements 2 0 <Armando R1Katia Carlos - 06/10/18 09:39> Narrative: GENERAL: Thin male, lying in bed, no retraction of the chest. No longer breathing through pursed lips NECK: No JVD. CARDIOVASCULAR: Regular rate and rhythm. Mechanical heart valve click auscultated. RESPIRATORY: No accessory muscle use. Breath sounds diminished bilateral bases, improved from previous exams GASTROINTESTINAL: Abdomen soft, non-tender, nondistended. Bowel sounds present. MUSCULOSKELETAL: Extremities without clubbing, cyanosis. Trace edema bilateral ankles, pitting. NEUROLOGICAL: Awake and alert. No obvious cranial nerve deficits. Motor grossly within normal limits. 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 - Presence of prosthetic heart valve Status: Acute (5) HTN (hypertension) Code(s): I10 - Essential (primary) hypertension Status: Acute (6) BPH (benign prostatic hyperplasia) Code(s): N40.0 - Benign prostatic hyperplasia without lower urinary tract symptoms Status: Acute (7) Dyslipidemia Code(s): E78.5 - Hyperlipidemia, unspecified Status: Acute (8) Nutrition, metabolism, and development symptoms Code(s): R63.8 - Other symptoms and signs concerning food and fluid intake Status: Acute <Av Barrios Ramila - 06/10/18 10:25> (1) Pneumonia Code(s): J18.9 - Pneumonia, unspecified organism Status: Acute Plan: -Improving on Vanc/Zosyn, failed outpatient treatment -Walk test ordered -Consider transition to p.o. antibiotics, Omnicef as patient failed outpatient treatment with levofloxacin and azithromycin -Reevaluate for possible DC today (2) Sepsis Code(s): A41.9 - Sepsis, unspecified organism Status: Acute Plan: 2/2 pneumonia, resolving. 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 -Restarted warfarin 3 mg today -Echo showing 35-40% ejection fraction with a pulmonary artery pressure of 53, no PFO evident (5) HTN (hypertension) Code(s): I10 - Essential (primary) hypertension Status: Acute Plan: Continue home furosemide 40 mg, losartan 25 mg, metoprolol 50 mg twice daily (6) BPH (benign prostatic hyperplasia) Code(s): N40.0 - Benign prostatic hyperplasia without lower urinary tract symptoms Status: Acute Plan: Continue home tamsulosin (7) Dyslipidemia Code(s): E78.5 - Hyperlipidemia, unspecified Status: Acute Plan: Continue home atorvastatin (8) Nutrition, metabolism, and development symptoms Code(s): R63.8 - Other symptoms and signs concerning food and fluid intake Status: Acute Plan: Diet: Regular adult diet Fluids: P.o. for now Electrolytes: Replete as necessary, daily BMPs DVT prophylaxis: Restart warfarin today <Katia Siegel - 06/10/18 09:34> - Assessment and Plan Discussed Condition With: Jo Ann Barrios and Enrrique <Katia Siegel - 06/10/18 09:39> - Attending Attestation The exam, history, and the medical decision-making described in the above note were completed with the assistance of the resident physician. I reviewed and agree with the findings presented. I attest that I had a njsy-jh-lfry encounter with the patient on the same day, and personally performed and documented my assessment and findings in the medical record. Still improving. Eager to go home. If passes walk test and blood cultures negative at 48 hrs, could go home on PO abx, cefdinir + azithro for two more days (only had 3 days azithro originally) and 3 days of IV abx now. Restarting warfarin. Add urine GC/CT with dysuria still Appears euvolemic for him. <Av Barrios - 06/10/18 10:25> <Katia Siegel E - Last Filed: 06/10/18 09:34> (1) Pneumonia Qualifiers: Laterality: bilateral <Av Barrios - Last Filed: 06/10/18 10:25> (1) Pneumonia Qualifiers: Laterality: bilateral <Katia Siegel E - Last Filed: 06/10/18 09:34> (1) Pneumonia Qualifiers: Laterality: bilateral <Av Barrios K - Last Filed: 06/10/18 10:25> (1) Pneumonia Qualifiers: Laterality: bilateral
[2018-06-10] MEDS ORDERED: Benzonatate 100 MG Capsule PO PRN (09:42)
[2018-06-10 10:00] VITALS: RESP 20
--- NOTE | 2018-06-10 13:56 | P.DS ---
Date of admission: 06/09/18 18:03 Primary care physician: Jean Garcia MD Brief History from admission: Mr Correa presenting for worsening SOB and dizziness. He was seen on 06/02 in [place] and diagnosed with UTI and possible bronchitis, placed on levaquin. Took 2 days of the antibiotics, was not getting any better. PCP on Friday Dr Garcia, and he was switched to azithromycin and codeine cough medicine. Cough is getting worse, increased white sputum, denies any hemoptysis. Reports chills, flushing, urinary frequency, dysuria. Denies any syncope, fevers, nausea, vomiting, hematuria. Single episode of diarrhea right after starting the levaquin. Reports recent leg swelling. Orthopnea. 9 lb weight loss in past week [employer] Dr Tammie Chaves. Last echocardiogram about 2 years ago, believes normal HTN BPH Dyslipidemia H/o arrhythmia, maybe afib prior to ablation Meds See med list- alternating 6/3 mg daily with warfarin, did not take medications this morning (would be on a 6mg dose today) Sx Ablation Mechanical valve placement, 1996 Debulking of the prostate [facility] Mother- CHF, HTN Social EtOH 24 cans of beer/ week, no alcohol in about 1 month Tobacco quit 22 years ago, 2ppd for about 30 years Recreational Drugs none DS: Diagnosis - Discharge Diagnosis (1) Pneumonia Status: Acute (2) Sepsis Status: Acute (3) UTI (urinary tract infection) Status: Acute (4) Mechanical heart valve present Status: Acute (5) HTN (hypertension) Status: Acute (6) BPH (benign prostatic hyperplasia) Status: Acute (7) Dyslipidemia Status: Acute (8) Nutrition, metabolism, and development symptoms Status: Acute DS: Summary Hospital Course: Mr. Ward was admitted on 06/08 for worsening shortness of breath and dizziness after failing outpatient treatment for possible UTI and pneumonia. He had been treated with Levaquin which was then switched to azithromycin 2 days prior to admission. He was started on Vancomycin and Zosyn. He continued to improve clinically, he did not require any nasal cannula supplemental oxygenation. Echocardiogram was performed while in hospital to evaluate cardiac function in a patient with known mechanical valves. Urine and blood cultures no growth times 2 days. HIV, gonorrhea, chlamydia testing negative. A walk test was performed showing that Mr. Barronett did not desaturate. He was discharged home in stable condition on 06/10 with prescriptions for 2 further days of antibiotics (Cefdinir and azithromycin) and follow-up with PCP. - Time Spent with Patient Total time spent providing and/or coordinating discharge services: Less than 30 minutes - Quality: VTE Deep Vein Thrombosis/Pulmonary Embolism Present on Admission: No Exam Vital signs: Vital Signs 06/09/18 16:00 06/09/18 20:00 06/09/18 20:39 Temperature 97.6 F 98 F Pulse Rate 78 67 Respiratory Rate 20 18 Blood Pressure 122/67 116/60 Pulse Oximetry 91 L 95 94 L Pulse Oximetry [Exertion on Room Air] Pulse Oximetry [Resting on Room Air] 06/10/18 00:00 06/10/18 02:23 06/10/18 02:26 Temperature 98 F Pulse Rate 51 L 76 Respiratory Rate 18 19 18 Blood Pressure 106/59 L 131/67 Pulse Oximetry 92 L 91 L 97 Pulse Oximetry [Exertion on Room Air] Pulse Oximetry [Resting on Room Air] 06/10/18 04:00 06/10/18 08:00 06/10/18 10:33 Temperature 97.8 F 97.8 F Pulse Rate 71 86 Respiratory Rate 18 20 Blood Pressure 114/60 129/66 Pulse Oximetry 95 90 L 93 L Pulse Oximetry [Exertion on Room Air] 91 L Pulse Oximetry [Resting on Room Air] 93 L Intake & Output 06/09/18 06/10/18 06/10/18 18:59 06:59 18:59 Intake Total 1315 / 1315 955 / 955 100 / 100 Output Total 100 / 100 Balance 1315 / 1315 855 / 855 100 / 100 Weight 76.8 kg Intake: IV 715 / 715 715 / 715 100 / 100 Zosyn 4.5 GM Premix 4.5 gm In 200 / 200 200 / 200 100 / 100 100 ml @ 200 mls/hr IV.SIG Q6H [facility] Rx#:[id number] Vancomycin Inj 1,500 MG In NS 515 / 515 515 / 515 Inj 500 ML @ 250 mls/hr IV.SIG Q18H [facility] Rx#:[id number] Oral 600 / 600 240 / 240 Output: Urine 100 / 100 Other: # Voids 4 Date of Last Bowel Movement 06/06/18 06/09/18 06/09/18 # Bowel Movements 2 0 Results Procedures completed during hospitalization: Echocardiogram on 06/09 Labs on day of discharge: Labs from last 24 hours 06/10/18 06/10/18 06/10/18 11:30 06:01 06:01 WBC RBC Hgb Hct MCV MCH MCHC RDW Plt Count MPV Neut % (Auto) Lymph % (Auto) Swift % (Auto) Eos % (Auto) Baso % (Auto) Neut # (Auto) Lymph # (Auto) Swift # (Auto) Eos # (Auto) Baso # (Auto) WBC Differential Differential Comment PT 25.1 H D INR 2.5 Sodium 139 Potassium 3.7 Chloride 104 Carbon Dioxide 27.7 Anion Gap 7 BUN 14 Creatinine 1.20 Estimated GFR 59 L Random Glucose 112 H Calcium 8.6 Chlam trachomat DNA PCR Not detected N.gonorrhoeae DNA (PCR) Not detected 06/10/18 06:01 WBC 14.2 H RBC 3.62 L Hgb 11.2 L Hct 33.5 L MCV 92.6 MCH 31.1 MCHC 33.6 RDW 13.2 Plt Count 328 MPV 8.2 Neut % (Auto) 80.5 H Lymph % (Auto) 8.5 L Swift % (Auto) 7.9 Eos % (Auto) 2.5 Baso % (Auto) 0.6 Neut # (Auto) 11.4 H Lymph # (Auto) 1.2 Swift # (Auto) 1.1 H Eos # (Auto) 0.4 Baso # (Auto) 0.1 WBC Differential . Differential Comment Auto diff final PT INR Sodium Potassium Chloride Carbon Dioxide Anion Gap BUN Creatinine Estimated GFR Random Glucose Calcium Chlam trachomat DNA PCR N.gonorrhoeae DNA (PCR) Preliminary micro results at discharge 06/09/18 12:58 Sputum Culture - Preliminary Sputum - Expectorated Sputum Immature growth - reincubate 06/08/18 14:55 Aerobic Blood Culture - Preliminary Blood - Peripheral No growth in 2 days Anaerobic Blood Culture - Preliminary No growth in 2 days 06/08/18 14:50 Aerobic Blood Culture - Preliminary Blood - Peripheral No growth in 2 days Anaerobic Blood Culture - Preliminary No growth in 2 days - Impressions ITS Impressions Chest X-Ray 06/08/18 13:14 CONCLUSION: Developing bilateral parenchymal infiltrates. Venous Doppler Study 06/08/18 14:30 CONCLUSION: No evidence of deep venous thrombosis. Discharge Plan - Discharge Disposition Patient Disposition: 01 Discharge Home - Discharge Condition Condition: Stable - Discharge Order Discharge Orders: Discharge Order (Routine); Ordered 06/10/18 Ordered By: Katia Roberts R1 - Physicians Team Primary Care Provider: Jean Garcia Attending Provider: Av Barrios
[2018-06-10 15:24] VITALS: BP 95/56; PULSE 56; TEMP 97.6; O2SAT 91
[2018-06-10] MEDS ORDERED: Pharmacy Ordered Lab Info OTHER ONE (21:45)
== END 2018-06-10 14:55 | disposition home or self-care (01) | DRG 871 ==
LOC: NEDA 12:57 → NEPE 12:57 → NEDA 17:36 → N04 17:37
PROVIDERS: ADMIT Family Medicine; ATTEND Family Medicine
CPT/HCPCS: 71010; 71045; 80048; 80053; 81001; 82308; 83520; 83605; 83880; 84484; 85025; 85610; 85730; 87040; 87070; 87086; 87205; 87275; 87276; 87389; 87491; 87591; 87804; 90774; 90784; 92610; 93005; 93308; 93970; 94618; 94620; 96374; 99285; C8952; G0195; J2543; J3370; J7040; J7050